=== PATIENT | male | born 1955 | race Caucasian/White ===

== ENCOUNTER 2017-07-23 12:15 | Outpatient (CLI) | payer MEDICARE, MEDICAID ==
--- OUTSIDE RECORDS SUMMARY | 2017-07-29 05:24 | XMS | Clinical Summary ---
:1955 Author Organization [facility] Address [address] [place] [address] Phone Care Team Providers Name Role Phone , Primary Care Provider Unavailable Allergies Not on File Current Medications Not on file Active Problems Not on file Social History Tobacco Use Types Packs/Day Years Used Date Never Assessed Sex Assigned at Date Recorded Not on file Last Filed Vital Signs Not on file Plan of Treatment Not on file Results Not on filefrom Last 3 Months
== END 2017-07-23 12:16 | disposition home or self-care (01) ==
LOC: LABBT 12:15
PROVIDERS: ATTEND Internal Medicine
DX: R91.8 Other nonspecific abnormal finding of lung field (principal)

== ENCOUNTER 2017-07-25 06:46 | Day surgery (SDC) | payer MEDICARE, MEDICAID ==
[2017-07-23 12:43] VITALS: BMI 46.3
[2017-07-25] MEDS ORDERED: Lidocaine 4% PF 5 ML AMP NEB SCH (07:45)
[2017-07-25] MEDS ORDERED: Sodium Chloride 0.9% 1,000 ML IV SCH (07:45)
[2017-07-25] MEDS ORDERED: Lidocaine 1% (PF) 30 ML VIAL ONE (08:17)
[2017-07-25] MEDS ORDERED: Midazolam HCl 2 mg/2 ml Vial ONE (09:01)
[2017-07-25] MEDS ORDERED: Fentanyl 100 MCG/2 ML VIAL ONE (09:01)
[2017-07-25] MEDS ORDERED: Lidocaine 1% PF 5 ML VIAL ONE (09:31)
[2017-07-25] MEDS ORDERED: Succinylcholine Chloride 20 MG/ML 10 ml SYRINGE FS ONE (09:31)
[2017-07-25] MEDS ORDERED: Propofol 200 MG/20 ML VIAL ONE (09:31)
--- NOTE | 2017-07-25 15:13 | OP ---
DATE OF PROCEDURE: 07/25/2017 SERVICE: Pulmonary Medicine. PROCEDURES PERFORMED: Fiberoptic bronchoscopy with: 1. Visual airway inspection. 2. Endobronchial biopsy from the superior segment of the right lower lobe. 3. Bronchial washing from the right lower lobe. PREOPERATIVE DIAGNOSES: Pulmonary mass. POSTPROCEDURE DIAGNOSIS: Pulmonary mass. PROCEDURE PER ASSESSMENT NURSE: Cristopher Cain M.D. MEDICATIONS: 1. Epinephrine 2 mL dilution. 2. For list of medicines, please refer to anesthesia's note. PREANESTHESIA ASSESSMENT: H\T\P had been performed. The patient's medications and allergies were r eviewed. Informed consent was obtained after discussing risks, benefits, and rationale for performi ng the procedure as well as alternative options. DESCRIPTION OF PROCEDURE: A timeout was performed, identifying the correct procedure and patient wi th name and date of . After induction of anesthesia, a diagnostic fiberoptic bronchoscope was introduced through the endotracheal tube. It was advanced into the trachea, where tracheobronchial tree inspection was carried out. There was clear identification of the right upper lobe, right midd le lobe, right lower lobe, left upper lobe, lingula, and left lower lobe. Anatomy was normal to the segmental level. However, there was some mass sitting inside of the superior segment of the right lower lobe, which obstructed any passage of the instrument. A bronchial wash was obtained from the right lower lobe. I preemptively gave a small aliquot of diluted epinephrine. Several endobronchial biopsies were obtained from the lesion under direct observation. Hemostasis was verified and the b ronchoscope was subsequently removed from the patient. FINDINGS: 1. Endobronchial mass of the superior segment of the right lower lobe obstructed, all instruments f rom passing distal. 2. Secretions were minimal. 3. No other endobronchial disease was identified. SPECIMENS: 1. Endobronchial biopsies. 2. Bronchial washing for pathology. COMPLICATIONS: None. ESTIMATED BLOOD LOSS: 2 mL. FLUOROSCOPY TIME: None. COMPLICATIONS: None. DISPOSITION: The patient will be discharged to home once he meets criteria.
--- OUTSIDE RECORDS SUMMARY | 2017-07-29 23:31 | XMS | Clinical Summary ---
:1955 Author Organization [facility] Address [address] [place] [address] Phone Care Team Providers Name Role Phone [...]
== END 2017-07-25 11:30 | disposition home or self-care (01) ==
LOC: SDC 06:46
PROVIDERS: ATTEND Internal Medicine
PROC: 0BB68ZZ Excision of Right Lower Lobe Bronchus, Via Natural or Artificial Opening Endoscopic (ICD-10-PCS; principal; 2017-07-25)
DX: C34.31 Malignant neoplasm of lower lobe, right bronchus or lung (principal); I25.10 Atherosclerotic heart disease of native coronary artery without angina pectoris; J44.9 Chronic obstructive pulmonary disease, unspecified; I11.0 Hypertensive heart disease with heart failure; I50.20 Unspecified systolic (congestive) heart failure; G47.33 Obstructive sleep apnea (adult) (pediatric); E78.5 Hyperlipidemia, unspecified; M19.90 Unspecified osteoarthritis, unspecified site; F17.210 Nicotine dependence, cigarettes, uncomplicated; Z79.899 Other long term (current) drug therapy; Z90.49 Acquired absence of other specified parts of digestive tract; Z98.52 Vasectomy status; Z98.890 Other specified postprocedural states
CPT/HCPCS: 88112; 88305; 88313; 88341; 88342; J2001; J2250; J2704; J3010; J7620

== ENCOUNTER 2017-08-15 09:00 | Outpatient (CLI) | payer MEDICARE, MEDICAID ==
--- NOTE | 2017-08-23 10:10 | PFT ---
PATIENT HISTORY: HEIGHT: 65 IN WEIGHT: 167 LBS SMOKER: YES HOW LON YEARS PACKS PER DAY: 2 PACKS PRODUCTIVE COUGH: NO LUNG DISEASE: COPD PHYSICIAN INTERPRETATION FINAL REPORT: FEV1 is 1.34 liters after bronchodilators. This improves to 1.7 liters best for follow capacity is 2.7 liters after bronchodilators. Mid flow are severely reduced. Diffusion is reduced, but corrects partially for lung volumes. IMPRESSION: Overall, this study is suggestive of a severe obstructive defect that improves with bronchodilators. Lung volumes were not done. For some reason spirometry and diffusion only were ordered. Spread Cutter: VARUN.[email or web address] Slabber: MANDI HAN
== END 2017-08-15 09:01 | disposition home or self-care (01) ==
LOC: CP 09:00
PROVIDERS: ATTEND Internal Medicine
DX: C34.90 Malignant neoplasm of unspecified part of unspecified bronchus or lung (principal); J44.9 Chronic obstructive pulmonary disease, unspecified
CPT/HCPCS: 94060; 94729

== ENCOUNTER 2017-08-18 11:52 | Outpatient (CLI) | payer MEDICARE, MEDICAID ==
--- NOTE | 2017-08-18 16:46 | MRI ---
BRAIN MRI WITH AND WITHOUT CONTRAST: Date: 08-18-17 Comparison: None. History: Lung cancer. Assess for intracranial metastatic disease. Technique: Multiplanar, multisequence MR imaging of the brain is obtained with and without contrast. FINDINGS: The diffusion weighted imaging demonstrates no evidence for acute infarction. The axial gradient echo imaging demonstrates no evidence for intracranial hemorrhage. There are a few scattered foci of increased T2 and FLAIR signal identified within the periventricula r and deep white matter, as well as within the region of the belly of the bessie. These findings sugge st small vessel disease. Arterial flow voids at the axial level of the skull base appear grossly unremarkable on the T2 weigh sejal imaging. The imaged paranasal sinuses and mastoid air cells demonstrate grossly unremarkable T2 appearance. Post contrast imaging demonstrates no abnormal enhancement within the brain parenchyma. Incidental noted is made of a posterior right frontal developmental venous anomaly. IMPRESSION: No MR evidence of intraaxial metastatic disease. POS: [facility]
== END 2017-08-18 11:53 | disposition home or self-care (01) ==
LOC: MRI 11:52
PROVIDERS: ATTEND Internal Medicine Hematology & Oncology
DX: C34.31 Malignant neoplasm of lower lobe, right bronchus or lung (principal); R51 Headache
CPT/HCPCS: 70553

== ENCOUNTER 2017-09-03 08:55 | Outpatient (CLI) | payer MEDICARE, MEDICAID ==
--- NOTE | 2017-09-03 09:53 | CT ---
CT CHEST WITH CONTRAST: Technique: Multiple axial tomograms were obtained through the chest with IV enhancement. History: Lung cancer. Recently diagnosed with lung cancer one month ago. History of COPD. Comparison: None. FINDINGS: There is a right infrahilar mass which measures approximately 4 cm diameter in the coronal plane. Thi s mass encompasses the right lower lobe bronchus. There is some streaky atelectasis extending into th e posterior right lower lobe. No effusion. Small calcified right hilar lymph nodes. No mediastinal adenopathy. There is questionable mural thick ening of the mid and lower esophagus. Images through the upper abdomen unremarkable. IMPRESSION: Right infrahilar mass measuring 4 cm diameter consistent with neoplasm as described above. There is s ome streaky parenchymal change radiating posteriorly from this mass into the right lower lobe suggest ing streaky atelectasis although a component of inflammatory infiltrate cannot be excluded. POS: [facility]
== END 2017-09-03 08:56 | disposition home or self-care (01) ==
LOC: CT 08:55
PROVIDERS: ATTEND Internal Medicine Medical Oncology
DX: C34.31 Malignant neoplasm of lower lobe, right bronchus or lung (principal); R91.8 Other nonspecific abnormal finding of lung field
CPT/HCPCS: 71260

== ENCOUNTER 2019-07-13 02:12 | Inpatient (IN) | payer MEDICARE, MEDICAID ==
[2019-07-13] MEDS ORDERED: HYDROmorphone 0.5 MG/0.5 ML SYRINGE ONE (02:27)
[2019-07-13 02:37] LABS: Hemoglobin 11.5 g/dL (14.0-18.0); Red Blood Cell (RBC) Count 5.24 mill/uL (4.70-6.10); White Blood Cell (WBC) Count 9.9 thou/uL (4.8-10.8)
[2019-07-13] MEDS ORDERED: Azithromycin 500 MG VIAL ONE (02:37)
[2019-07-13] MEDS ORDERED: Cefepime 2 GM VIAL ONE (02:37)
[2019-07-13 02:45] LABS: Actual Bicarbonate (HCO3a) 29.6 mEq/L (22-28); Analyzer IN Cardio ER; Base Excess (BEa) 5.9 mEq/L (-2.0 to +3.0); CO2 Tension 39.6 mmHg (35.0-45.0); Calcium, Ionized 1.82 mmol/L (1.12-1.30); Carboxyhemoglobin (COHb) 0.4 gm% (0.0-3.0); Hemoglobin (Hb) 11.8 g/dL (14.0-18.0); O2 Tension (PaO2) 99.2 mmHg (> 80.0); Potassium - ABG Lab 2.74 mmol/L (3.70-5.30); pH, Arterial 7.49 (7.35-7.45)
[2019-07-13 02:46] LABS: Bacteria/HPF None Seen HPF (None Seen); Bilirubin 1+ (Negative); Blood, Urine 1+ (Negative); Clarity Turbid (Clear); Glucose, Urine (Dipstick) Normal (Negative); Leukocyte 25 Leu/uL (Negative); Mucous/LPF 4+ LPF (<2+); Nitrite Negative (Negative); Protein, Urine (Dipstick) 100 mg/dL (Neg-Trace)
[2019-07-13 02:51] LABS: ALT (SGPT) 14 U/L (8-55); AST (SGOT) 21 U/L (5-34); Albumin 2.9 g/dL (3.4-4.8); Alkaline Phosphatase 327 U/L (40-110); Anion Gap 19 mmol/L (10-20); BUN (Urea Nitrogen) 16 mg/dL (8.4-25.7); Bilirubin, Total 0.8 mg/dL (0.2-1.2); Calc. Creatinine Clearance 0 mL/min (70-130); Carbon Dioxide 31 mmol/L (23-31); Chloride 89 mmol/L (98-107); Estimated GFR-MDRD 70; Globulin 4.4 g/dL (2.4-3.5); Glucose 161 mg/dL (80-115); Potassium 3.1 mmol/L (3.5-5.1); Protein, Total 7.3 g/dL (5.8-8.1); Sodium 136 mmol/L (136-145)
[2019-07-13] MEDS ORDERED: Propofol 1,000 MG/100 ML VIAL IV ONE (02:51)
[2019-07-13 02:53] LABS: #Basophils 0.1 thou/uL (0.0-0.2); #Lymphocytes 0.5 thou/uL (1.20-3.40); #Monocytes 0.8 thou/uL (0.11-0.59); #Neutrophils 8.5 thou/uL (1.40-6.50); %Basophils 1.5 % (0.0-1.0); %Lymphocytes 4.9 % (21.0-51.0); %Monocytes 8.4 % (0.0-10.0); %Neutrophils 85.2 % (42.0-75.0); Hypochromia SLIGHT = 6-15 cells (100X) (0-5/hpf); MDiff Complete? YES; Mean Corpuscular HGB CONC 29.7 g/dL (32.0-36.0); Mean Corpuscular Hemoglobin 21.9 pg (27.0-31.0); Mean Corpuscular Volume 73.8 fL (78.0-98.0); Microcytosis SLIGHT = 6-15 cells (100X) (0-5/hpf); Platelet Count 312 thou/uL (130-400); Platelet Morphology Comment Appears Adequate; RBC Distribution Width 15.9 % (11.5-14.5)
[2019-07-13 02:53] LABS: Puncture Site LRA
[2019-07-13 03:06] LABS: Calcium 15.6 mg/dL (7.8-10.44)
[2019-07-13] MEDS ORDERED: Dexamethasone 10 MG/ML VIAL ONE (03:34)
[2019-07-13] MEDS ORDERED: Potassium Chloride 40 MEQ in Sodium Chloride 0.9% 250 ML 250 ML IVPB SCH (04:00)
[2019-07-13] MEDS ORDERED: Acetaminophen 650 MG Suppository PR PRN (04:10)
[2019-07-13] MEDS ORDERED: Ondansetron ODT 4 MG TAB PO PRN (04:10)
[2019-07-13] MEDS ORDERED: Ondansetron PF 4 MG/2 ML Vial IVP PRN (04:10)
[2019-07-13] MEDS ORDERED: Ventilator Sedation Protocol 1 EACH FS SCH (04:13)
[2019-07-13] MEDS ORDERED: Calcitonin,Salmon,Synthetic 200 UNITS/ML SC SCH (04:15)
[2019-07-13] MEDS ORDERED: fentaNYL Citrate/PF 2,000 MCG in Sodium Chloride 0.9% 60 ML IV SCH (04:32)
[2019-07-13] MEDS ORDERED: DISCONTINUE PREVIOUS NARCOTIC PAIN MEDICATIONS AND BENZODIAZEPINES FS SCH (04:32)
[2019-07-13] MEDS ORDERED: Morphine 2 MG/ML SYRINGE SLOW IVP PRN (04:32)
[2019-07-13] MEDS ORDERED: Lorazepam 2 MG/ML VIAL SLOW IVP PRN (04:32)
[2019-07-13] MEDS ORDERED: Fentanyl BOLUS 250 ML IVPB PRN (04:32)
[2019-07-13] MEDS ORDERED: Propofol BOLUS 1,000 MG/100 ML VIAL IV PRN (04:32)
[2019-07-13 04:51] VITALS: BMI 37.2
[2019-07-13] MEDS: Sodium Chloride 0.9% 1,000 ML IV SCH ×5 (05:14→23:52)
--- NOTE | 2019-07-13 06:02 | HP ---
PRIMARY CARE DOCTOR: None reported. CODE STATUS: Full code. TIME OF EVALUATION: 4:20 a.m. CHIEF COMPLAINT: Acute change in mental status. HISTORY OF PRESENT ILLNESS: This is a 64-year-old male patient with past medical history of lung cancer, came to the hospital after having been found with altered mental status, saturation in the 60s and 70s. The history of what happened is unknown as per their transportation report. The patient will need to be intubated due to acute respiratory failure and acute encephalopathy. He was found to have a very high calcium level, most likely this is the reason for the acute encephalopathy and also concomitant dehydration. The patient is going to ICU and will be monitored there. We will start the patient on aggressive IV hydration and calcitonin. We will repeat the calcium for efficacy of medication to decide on further doses. REVIEW OF SYSTEMS: Unable to obtain due to the patient is encephalopathic and intubated. PAST MEDICAL HISTORY: Positive for hypertension and COPD. PAST SURGICAL HISTORY: Hernia patch, penis implant, and cholecystectomy. PSYCHIATRIC HISTORY: Depression. SOCIAL HISTORY: The patient drinks socially every week. No drug use. Smokes one pack per day. KNOWN ALLERGIES: No known drug allergies. FAMILY HISTORY: Reviewed, noncontributory for current presentation. REPORTED MEDICATIONS: Unable to obtain. PHYSICAL EXAMINATION: VITAL SIGNS: On presentation, blood pressure 133/91, heart rate 114, respiratory rate was 18, and oxygen saturation was 100% on the vent. GENERAL APPEARANCE: The patient is sedated, intubated, poor hygiene. HEENT: Eyes, normal conjunctivae. Moist oral mucosa. Anicteric. No JVD. RESPIRATORY: Bilateral air entry. Scattered rales. No wheezes. Symmetric expansion. CARDIOVASCULAR: Normal rate. Regular rhythm. No murmurs. No gallop. No edema. ABDOMEN: Soft. Normal bowel sounds. MUSCULOSKELETAL: Baseline range of motion and strength. SKIN: Warm and intact. No pallor. No rash. No redness. The patient has very poor hygiene. Capillary refill seems to intact. NEURO: No evidence of any new focal weakness. The patient is sedated, intubated, unable to fully explore. PSYCH: Unable to explore. IMAGING STUDIES: EKG was done. The patient has sinus tachycardia at the rate of 119 with infiltrate and PVCs. Radiology, chest CT with contrast shows no evidence of pulmonary embolism. Right healing lower lobe posterior mediastinal mass. LABORATORY DATA: Reviewed. The patient has a white count of 9.9, hemoglobin 11.5, MCV 73.8, platelet count 312, neutrophils 35.2. Blood gas; pH 7.49 with pCO2 of 39.6, oxygen saturation is 99.2. Calcium ionized was 1.82. Chemistry; sodium 136, potassium 3.1, chloride 89, anion gap 31, BUN 19, creatinine 1.06, GFR 70, glucose 169 with lactic acid 2.6, calcium was 15.6, total bilirubin 0.8, alkaline phosphatase was 327. CK was 19. Troponin 0.013. Beta-natriuretic peptide 116.4, albumin 2.9, TSH 1.0. Urine was done. White count was 11 to 20. ASSESSMENT AND PLAN: The patient will be placed in the hospital with following medical problems. 1. Severe hypercalcemia. The patient has been started on aggressive hydration; it might be the reason for the acute encephalopathy, started on calcitonin. ____ pamidronate is not available, we can do zoledronic acid. This is likely secondary to underlying lung cancer. 2. Urinary tract infection. The patient has a positive urine. The patient has been started on antibiotics, follow cultures, we will adjust treatment as per sensitivity. 3. Lactic acidosis, likely secondary to sepsis. We will treat underlying condition. 4. Respiratory alkalosis, pH 7.49 and pCO2 of 39.6. 5. Chronic microcytic anemia. This is likely secondary to underlying malignancy. We will monitor. No need for any acute intervention at this point. 6. Hypokalemia. Potassium 3.1. We will replace electrolytes as needed. 7. Acute encephalopathy secondary to hypercalcemia/sepsis. We will treat underlying condition. 8. Acute hypoxic respiratory failure as reported by EMS. The patient has saturation in the 70s and 80s, needed to be intubated. 9. Lung cancer. This seems to be a chronic problem for this patient. This can be reassessed and treated as an outpatient with the patient's oncologist. 10. Deep venous thrombosis prophylaxis. critical care time 40 min spent in bedside assessment, medication reconciliation plan, discussion with er physician, stabilization of the patient Job ID: [id number] [facility]
[2019-07-13 06:49] LABS: Actual Bicarbonate (HCO3a) 33.2 mEq/L (22-28); Base Excess (BEa) 9.6 mEq/L (-2.0 to +3.0); CO2 Tension 40.9 mmHg (35.0-45.0); Calcium, Ionized 1.82 mmol/L (1.12-1.30); Carboxyhemoglobin (COHb) 0.8 gm% (0.0-3.0); Hemoglobin (Hb) 11.1 g/dL (14.0-18.0); O2 Tension (PaO2) 75.4 mmHg (> 80.0); Potassium - ABG Lab 3.36 mmol/L (3.70-5.30); pH, Arterial 7.53 (7.35-7.45)
[2019-07-13 06:50] LABS: ALV-art Gradient 158.675 (0-20); Puncture Site RRA
--- NOTE | 2019-07-13 08:02 | CT ---
PRELIMINARY REPORT/[facility]/EMERGENCY AFTER HOURS PROCEDURE: PROCEDURE INFORMATION: Exam: CT Angiography Chest With Contrast Exam date and time: 07/13/2019 3:18 AM Clinical history: 64 years old, male; Dyspnea and shortness of breath; Patient HX: 64 yo m presents t o ED via EMS with C/O respiratory distress. EMS reports PT was found at home with AMS. Pt's o2 sats b vi dropping into the low 80s-70s, PT was intubated by EMS in route to ED. EMS reports HX of copd. TECHNIQUE: Imaging protocol: Computed tomographic angiography of the chest with intravenous contrast. 3D rendering: MIP reconstructed images were created and reviewed. COMPARISON: No relevant prior studies available. FINDINGS: Tubes, catheters and devices: Endotracheal tube is present. A nasogastric tube lies with its tip in t he stomach. Pulmonary arteries: There is no evidence of peripheral filling defects within the pulmonary arterial circulation to suggest pulmonary embolism. Aorta: Unremarkable. No aortic aneurysm. No aortic dissection. Lungs: There is atelectasis along the right major fissure. Mild centrilobular emphysematous changes a re present. Pleural space: Unremarkable. No pneumothorax. No pleural effusion. Heart: Unremarkable. No cardiomegaly. No pericardial effusion. Mediastinum: there is a 9 x 10 x 11 cm mass in the right lower lobe/ibrahima and involving the posterior mediastinum suspicious for neoplasm. Lower lobe pulmonary arteries are seen coursing through the mass , some narrowed. Lymph nodes: Unremarkable. No enlarged lymph nodes. Bones/joints: Numerous healed right rib fractures are present. Soft tissues: Unremarkable. IMPRESSION: 1. There is no CT evidence of acute pulmonary embolism. 2. Right hilar/lower lobe/posterior mediastinal mass as above. Thank you for allowing us to participate in the care of your patient. Dictated and Authenticated by: Jose Rafael Liz MD 07/13/2019 3:39 AM Central Time ([place] & [place]) FINAL REPORT CT ANGIOGRAM OF CHEST: Date: 07/13/19 COMPARISON: 06/16/18. HISTORY: Respiratory distress. TECHNIQUE: CT angiogram of the chest is performed in the axial plane. Three-dimensional reformatted images are s ubmitted for interpretation. FINDINGS: Endotracheal and nasogastric tube are identified. There is no evidence of pulmonary arterial embolism to the level of the segmental arteries. Visualized upper solid organs are grossly unremarkable. Gall bladder is surgically absent. There is a large subcarinal mass with extension into the right infrahil ar region. There is consolidation and opacification of the medial right lower lobe. No pleural effusi on or pneumothorax. Multiple old right rib fractures are noted. IMPRESSION: This report is in agreement with the preliminary report by [facility]. 1. No evidence of pulmonary artery embolism to the level of the segmental arteries. 2. There is a right subcarinal/right infrahilar and right lower lobe mass as described in the prelim inary report by [facility]. Neoplasm is favored until proven otherwise. Lesion is amenable to biopsy via br onchoscopy. POS: [facility]
--- NOTE | 2019-07-13 08:05 | CT ---
PRELIMINARY REPORT/[facility]/EMERGENCY AFTER HOURS PROCEDURE: PROCEDURE INFORMATION: Exam: CT Head Without Contrast Exam date and time: 07/13/2019 3:12 AM Clinical history: 64 years old, male; Altered mental status/memory loss; Confusion or disorientation; Patient HX: 64 yo m presents to ED via EMS with C/O respiratory distress. EMS reports PT was found a t home with AMS. Pt's o2 sats began dropping into the low 80s-70s, PT was intubated by EMS in route to ED. EMS reports HX of copd. TECHNIQUE: Imaging protocol: Computed tomography of the head without contrast. COMPARISON: No relevant prior studies available. FINDINGS: Brain: Normal. No hemorrhage. Unremarkable white matter. No mass effect. Pineal gland calcification is noted. Ventricles: Normal. No ventriculomegaly. Bones/joints: Unremarkable. No acute fracture. Sinuses: Visualized sinuses are unremarkable. No fluid levels. Mastoid air cells: Visualized mastoid air cells are well aerated. Soft tissues: Unremarkable. IMPRESSION: No acute intracranial hemorrhage. Thank you for allowing us to participate in the care of your patient. Dictated and Authenticated by: Jose Rafael Liz MD 07/13/2019 3:28 AM Central Time ([place] & [place]) FINAL REPORT HEAD CT WITHOUT CONTRAST: Date: 07/13/19 HISTORY: Respiratory distress. Altered mental status. FINDINGS: No parenchymal hemorrhage. No extra-axial hematoma. No midline shift. Basilar cisterns are patent. Br ain volume is age-appropriate. Cortical scott-white matter differentiation preserved. No hydrocephalus . Mild mucosal thickening of the paranasal sinuses. Adequate mastoid air cell aeration. Intact calvar ium. IMPRESSION: This report is in agreement with the preliminary report by [facility]. No acute intracranial process. POS: [facility]
[2019-07-13] MEDS: Famotidine/PF 20 mg/2ml Vial SLOW IVP SCH ×2 (08:06→20:33)
--- NOTE | 2019-07-13 08:27 | PDOC.HOSPP ---
- Subjective Encounter Date: 07/13/19 Encounter Time: 08:25 Subjective: intubated, sedated - Objective Vital Signs & Weight: Vital Signs (12 hours) Temp Pulse BP Pulse Ox 07/13/19 07:53 92 111/71 07/13/19 06:18 97 07/13/19 05:00 99.0 F 07/13/19 04:27 91 119/81 Weight Weight 259 lb 4.218 oz Most Recent Monitor Data Heart Rate from ECG 91 NIBP 111/71 NIBP BP-Mean 84 Respiration from ECG 16 SpO2 97 I&O: 07/12/19 07/13/19 07/14/19 06:59 06:59 06:59 Intake Total 298 Output Total 175 Balance 123 Result Diagrams: 07/13/19 02:27 07/13/19 02:27 Radiology Reviewed by me: Yes (cxr- ET above zen, no infiltrate) Hospitalist ROS - Medication Medications: Active Medications Generic Name Dose Route Start Last Admin Trade Name Freq PRN Reason Stop Dose Admin Famotidine 20 mg 07/13/19 09:00 07/13/19 08:06 Pepcid SLOW IVP 20 mg BID CHIDI Administration Heparin Sodium (Porcine) 5,000 units 07/13/19 09:00 07/13/19 08:06 Heparin SC 5,000 units TID CHIDI Administration Sodium Chloride 1,000 mls @ 200 mls/hr 07/13/19 04:00 07/13/19 05:14 Normal Saline 0.9% IV 1,000 mls .Q5H CHIDI Administration Sodium Chloride 10 ml 07/13/19 09:00 07/13/19 08:13 Flush - Normal Saline IVF 10 ml Q12HR CHIDI Administration - Exam Neck: no JVD Heart: RRR, no murmur Respiratory: CTAB Gastrointestinal: soft, normal bowel sounds Extremities: no edema Hosp A/P (1) Encephalopathy acute Code(s): G93.40 - ENCEPHALOPATHY, UNSPECIFIED Status: Acute (2) Hypercalcemia of malignancy Code(s): E83.52 - HYPERCALCEMIA Status: Acute (3) Acute respiratory failure with hypoxemia Code(s): J96.01 - ACUTE RESPIRATORY FAILURE WITH HYPOXIA Status: Acute (4) Lung cancer, lower lobe Code(s): C34.30 - MALIGNANT NEOPLASM OF LOWER LOBE, UNSP BRONCHUS OR LUNG Status: Chronic Qualifiers: Laterality: unspecified laterality Qualified Code(s): C34.30 - Malignant neoplasm of lower lobe, unspecified bronchus or lung (5) Hypokalemia Code(s): E87.6 - HYPOKALEMIA Status: Acute - Plan discussed with scooper post Tx high calcium, rpt level iv salime replace K+ discuss with family oncology consult
[2019-07-13] MEDS ORDERED: Enoxaparin Sodium 40 MG/0.4 ML SYRINGE SC SCH (09:00)
[2019-07-13] MEDS ORDERED: Heparin 5,000 UNITS/ML VIAL SC SCH (09:00)
[2019-07-13] MEDS ORDERED: ISOVUE-370 76%-LOCM 1 ML ONE (09:58)
--- NOTE | 2019-07-13 10:03 | RAD ---
CHEST 1 VIEW PORTABLE: Date: 07/13/19 HISTORY: Respiratory arrest, post intubation. COMPARISON: 07/15/18. FINDINGS: NG tube and endotracheal tubes are in satisfactory location. Surgical clips overlie the central media stinal region. Right-sided healed rib fractures and some pleural thickening. Abnormal opacity in the right infrahilar region, concerning for the possibility of underlying pneumonia, atelectasis, and/or mass. IMPRESSION: Abnormal right infrahilar and lower lobe abnormal opacity. Increased markings bilaterally, stable. NG tube and endotracheal tubes in position. Healed right rib fractures with pleural thickening. POS: [facility]
--- NOTE | 2019-07-13 10:30 | CON ---
DATE OF CONSULTATION: HISTORY OF PRESENT ILLNESS: This is a 64-year-old gentleman, unable to get any history. Apparently, there are no family members here. We tried last night to contact from the ER. He has called EMS. His sats were in the 80s and 70s, was intubated by EMS en route. He is on the vent. Apparently, previous history is outlined in the previous medical chart includes osteoarthritis; lung cancer with COPD, non-small cell; hypertension; sleep apnea. PAST SURGICAL HISTORY: Including bronchoscopy, cholecystectomy, some kind of a hernia patch. HOME MEDICATIONS: This presumably include; 1. Ventolin inhaler. 2. Chantix. 3. CQ. 4. Spiriva. 5. Entresto. 6. Crestor. 7. Lasix. 8. Advair. 9. Aspirin. 10. Amlodipine. ALLERGIES: UNKNOWN. PREVIOUS SURGERIES INCLUDE CHOLECYSTECTOMY, HERNIA, PENILE IMPLANT SURGERY. REVIEW OF SYSTEMS: Otherwise unobtainable. PHYSICAL EXAMINATION: GENERAL: Intubated on the vent, unresponsive. VITAL SIGNS: Blood pressure 110/70, pulse 80, respirations 18, afebrile, sats 99%. CHEST: Decreased breath sounds. No wheezing. CARDIAC: Normal S1, S2. No gallops. ABDOMEN: Soft. No masses. LABORATORY DATA: PO2 of 75, pCO2 of 40, pH 7.53, rate of 16, 40%. His calcium level is 15. He was given, I am told, calcitonin last night. IMPRESSION: Respiratory failure, right lung mass, non-small cell, morbid obesity, sleep apnea. Started steroids, neb treatments. Continue antibiotics, supportive care. We will once again try and get hold of the family. Start nutrition in the next 24 to 48 hours. Continue DVT prophylaxis. This is an ICU 45-minute critical time. Job ID: [id number]
[2019-07-13] MEDS: methylPREDNISolone Sod Succ 40 MG VIAL IVP SCH ×3 (11:09→23:52)
[2019-07-13] MEDS ORDERED: Zoledronic Acid 4 MG in Sodium Chloride 0.9% 100 ML IVPB SCH (11:30)
[2019-07-13] MEDS: Cefepime 1 GM in Sodium Chloride 0.9% 100 ML IVPB SCH (15:50)
[2019-07-13] MEDS: Propofol 1,000 MG/100 ML VIAL IV PRN ×2 (15:50→22:40)
[2019-07-13] MEDS: Enoxaparin Sodium 40 MG/0.4 ML SYRINGE SC SCH (20:33)
--- NOTE | 2019-07-13 22:19 | CON ---
DATE OF CONSULTATION: REASON FOR CONSULT: Squamous cell carcinoma of the right lower lobe. HISTORY OF PRESENT ILLNESS: Mr. 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 He presented to the emergency room via EMS with altered mental status. He was intubated for respiratory failure due to saturations in the 60s and 70s on room air. His calcium was elevated on arrival at 15.6. He was started on IV hydration, given a dose of Zometa and admitted to the ICU. Mr. 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 He was referred to Dr. Dailey for radiation opinion. It was felt that he would be a candidate for resection. He was then referred to Dr. Huffman in [place]. Unfortunately, the patient apparently never followed up nor has he been seen in our clinic since August 2017. A CT scan done in the emergency room on this visit showed a mediastinal mass measuring 9 x 10 x 11 cm. There were no enlarged lymph nodes. No obvious metastasis to the bones. No liver lesions. The patient remains intubated in the ICU. There is no family at bedside. History was obtained from review of prior medical records. PAST MEDICAL HISTORY: 1. Stage Ib squamous cell carcinoma of the right lower lobe. 2. Hypertension. 3. FL. 4. CAD. 5. Gastroesophageal reflux disease. 6. Mixed anxiety disorder. 7. Hyperlipidemia. 8. COPD. PAST SURGICAL HISTORY: 1. Cholecystectomy. 2. Penis implant. 3. Lung biopsy. ALLERGIES: NO KNOWN DRUG ALLERGIES. HOME MEDICATIONS: Unknown. FAMILY HISTORY: Brother had colon cancer. SOCIAL HISTORY: . Has 2 children. Lives alone. Current everyday smoker in 2017. No alcohol or illicit drug use. REVIEW OF SYSTEMS: Unable to obtain secondary to respiratory failure. PHYSICAL EXAMINATION: VITAL SIGNS: Temperature 98.5, pulse is 110, respiratory rate is 14, blood pressure is 141/88. He is 100% on FiO2 of 40. GENERAL: Obese male, in no acute distress. HEENT: Normocephalic, atraumatic. NECK: Supple. CV: Regular rate and rhythm. He is tachycardic. LUNGS: Diminished anteriorly as ET tube in place and is on the vent. ABDOMEN: Obese, nontender. Bowel sounds are positive. EXTREMITIES: No clubbing or cyanosis. SKIN: No rash. HEMATOLOGIC: No petechiae or purpura. NEUROLOGIC: The patient is sedated with Diprivan. PERTINENT LABS AND X-RAYS: Current WBCs are 9.9, hemoglobin 11.5, hematocrit 38.7, platelet count is 312,000, 85% neutrophils, 5% lymphocytes. Sodium 136, potassium 3.1, chloride 89, CO2 is 31, BUN is 16, creatinine 1.06. Lactic acid 2.6. Calcium 14.7, bilirubin 0.8, AST is 21, ALT is 14, alkaline phosphatase is 327. BNP is 116. Serum total protein 7.3, albumin 2.9, globulin 4.4. Urine showed no bacteria. ASSESSMENT: 1. 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 2. Respiratory failure. 3. Hypercalcemia. 4. Altered mental status, likely due to hypercalcemia. DISCUSSION: The patient remains on the ventilator. He is on antibiotics and IV fluids. His calcium has been treated with calcitonin and Zometa and should improve over the next several days. Zometa can be repeated after 7 days. It appears that he has not received any treatment for his lung cancer over the past 2 years and now is at least a stage III. His brain CT is negative for metastatic lesions, but has not been fully staged with abdomen and pelvic CT scan. It can be done at a later date once the patient is more stable. No acute recommendations at this time. We will follow along with the patient. Job ID: [id number] [id number]
[2019-07-14] MEDS: Cefepime 1 GM in Sodium Chloride 0.9% 100 ML IVPB SCH ×2 (02:41→17:15)
[2019-07-14] MEDS: Propofol 1,000 MG/100 ML VIAL IV PRN (05:17)
[2019-07-14] MEDS: Azithromycin 500 MG in Sodium Chloride 0.9% 250 ML 250 ML IVPB SCH (05:17)
[2019-07-14] MEDS: methylPREDNISolone Sod Succ 40 MG VIAL IVP SCH ×2 (05:17→13:09)
[2019-07-14] MEDS: Sodium Chloride 0.9% 1,000 ML IV SCH ×2 (05:21→11:14)
[2019-07-14 05:41] LABS: #Basophils 0.2 thou/uL (0.0-0.2); #Eosinphils 0.1 thou/uL (0.0-0.7); #Lymphocytes 0.4 thou/uL (1.20-3.40); #Monocytes 0.8 thou/uL (0.11-0.59); #Neutrophils 16.3 thou/uL (1.40-6.50); %Basophils 0.9 % (0.0-1.0); %Eosinophils 0.5 % (0.0-10.0); %Lymphocytes 2.1 % (21.0-51.0); %Monocytes 4.2 % (0.0-10.0); %Neutrophils 92.3 % (42.0-75.0); Hemoglobin 9.9 g/dL (14.0-18.0); Mean Corpuscular HGB CONC 31.6 g/dL (32.0-36.0); Mean Corpuscular Hemoglobin 22.4 pg (27.0-31.0); Mean Corpuscular Volume 70.9 fL (78.0-98.0); Mean Platelet Volume 8.3 fL (7.4-10.4); Platelet Count 296 thou/uL (130-400); RBC Distribution Width 16.3 % (11.5-14.5); Red Blood Cell (RBC) Count 4.43 mill/uL (4.70-6.10); White Blood Cell (WBC) Count 17.6 thou/uL (4.8-10.8)
[2019-07-14 05:52] LABS: Anion Gap 12 mmol/L (10-20); BUN (Urea Nitrogen) 13 mg/dL (8.4-25.7); Calc. Creatinine Clearance 153 mL/min (70-130); Carbon Dioxide 30 mmol/L (23-31); Chloride 102 mmol/L (98-107); Estimated GFR-MDRD Greater than 90; Glucose 134 mg/dL (80-115); Sodium 141 mmol/L (136-145)
[2019-07-14 05:54] LABS: Calcium 12.6 mg/dL (7.8-10.44); Potassium 2.8 mmol/L (3.5-5.1)
[2019-07-14] MEDS ORDERED: Potassium Chloride 20 MEQ TAB PO SCH (06:15)
[2019-07-14 06:34] LABS: Actual Bicarbonate (HCO3a) 35.8 mEq/L (22-28); Base Excess (BEa) 11.4 mEq/L (-2.0 to +3.0); CO2 Tension 46.5 mmHg (35.0-45.0); Calcium, Ionized 1.65 mmol/L (1.12-1.30); Carboxyhemoglobin (COHb) 0.8 gm% (0.0-3.0); Hemoglobin (Hb) 10.7 g/dL (14.0-18.0); O2 Tension (PaO2) 66.3 mmHg (> 80.0)
[2019-07-14 06:38] LABS: ALV-art Gradient 160.775 (0-20); Puncture Site RRA
[2019-07-14] MEDS: Famotidine/PF 20 mg/2ml Vial SLOW IVP SCH (07:34)
--- NOTE | 2019-07-14 08:04 | PDOC.HOSPP ---
- Subjective Encounter Date: 07/14/19 Encounter Time: 08:01 Subjective: intubated - Objective Vital Signs & Weight: Vital Signs (12 hours) Temp Pulse Resp BP Pulse Ox 07/14/19 07:02 104 H 109/77 07/14/19 06:00 15 07/14/19 04:00 98.4 F 16 07/14/19 02:10 112 H 125/83 07/14/19 02:00 15 07/14/19 00:46 108 H 95 07/14/19 00:00 98.4 F 15 07/13/19 22:47 109 H 135/86 07/13/19 22:00 15 Weight Admit Weight 259 lb Weight 259 lb 4.218 oz Most Recent Monitor Data Heart Rate from ECG 102 NIBP 116/79 NIBP BP-Mean 91 Respiration from ECG 18 SpO2 94 I&O: 07/13/19 07/14/19 07/15/19 06:59 06:59 06:59 Intake Total 298 3867 Output Total 175 1100 Balance 123 6117 Result Diagrams: 07/14/19 04:57 07/14/19 04:57 Hospitalist ROS - Medication Medications: Active Medications Generic Name Dose Route Start Last Admin Trade Name Freq PRN Reason Stop Dose Admin Albuterol/Ipratropium 3 ml 07/13/19 13:00 07/14/19 07:02 Duoneb NEB 3 ml [id number] CHIDI Administration Enoxaparin Sodium 40 mg 07/13/19 21:00 07/13/19 20:33 Lovenox SC 40 mg 2100 CHIDI Administration Famotidine 20 mg 07/13/19 09:00 07/14/19 07:34 Pepcid SLOW IVP 20 mg BID CHIDI Administration Sodium Chloride 1,000 mls @ 200 mls/hr 07/13/19 04:00 07/14/19 05:21 Normal Saline 0.9% IV 1,000 mls .Q5H CHIDI Administration Cefepime HCl 1 gm/ Sodium 100 mls @ 200 mls/hr 07/13/19 15:00 07/14/19 02:41 Chloride IVPB 100 mls 0300,1500 CHIDI Administration Azithromycin 500 mg/ Sodium 250 mls @ 250 mls/hr 07/14/19 04:30 07/14/19 05: 17 Chloride IVPB 250 mls Q24HR CHIDI Administration Methylprednisolone Sodium Succinate 40 mg 07/13/19 12:00 07/14/19 05:17 Solu-Medrol IVP 40 mg Q6HR CHIDI Administration Propofol 1,000 mg 07/13/19 04:32 07/14/19 05:17 Diprivan IV 08/12/19 04:32 1,000 mg INF PRN Administration TO ACHIEVE GOAL RASS Protocol Sodium Chloride 10 ml 07/13/19 09:00 07/14/19 07:34 Flush - Normal Saline IVF 10 ml Q12HR CHIDI Administration - Exam Neck: no JVD Heart: RRR, no murmur Respiratory - other findings: coarse BS Gastrointestinal: soft, non-tender, normal bowel sounds Extremities: no edema Hosp A/P (1) Encephalopathy acute Code(s): G93.40 - ENCEPHALOPATHY, UNSPECIFIED Status: Acute (2) Hypercalcemia of malignancy Code(s): E83.52 - HYPERCALCEMIA Status: Acute (3) Acute respiratory failure with hypoxemia Code(s): J96.01 - ACUTE RESPIRATORY FAILURE WITH HYPOXIA Status: Acute (4) Lung cancer, lower lobe Code(s): C34.30 - MALIGNANT NEOPLASM OF LOWER LOBE, UNSP BRONCHUS OR LUNG Status: Chronic Qualifiers: Laterality: unspecified laterality Qualified Code(s): C34.30 - Malignant neoplasm of lower lobe, unspecified bronchus or lung (5) Hypokalemia Code(s): E87.6 - HYPOKALEMIA Status: Acute - 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
--- NOTE | 2019-07-14 08:07 | RAD ---
PORTABLE CHEST 1 VIEW: DATE: 07/14/2019. TIME: 4:45 a.m. HISTORY: Respiratory failure. FINDINGS/IMPRESSION: Comparison is made with the exam of the previous day. Endotracheal and nasogastric tubes remain in p lace. The heart size is stable. There are mild atelectatic changes at the right lung base. No pneu mothoraces are seen. Healed rib fractures are again noted. Opacity in the right infrahilar region i s again noted. POS: [facility]
[2019-07-14] MEDS ORDERED: FLU VACC TS2019-20(65YR UP)/PF 180 MCG/0.5 ML SYRINGE IM ONE (09:00)
[2019-07-14] MEDS ORDERED: Prevnar 13-Val Conj/PF 0.5 ML SYRINGE IM ONE (09:00)
--- NOTE | 2019-07-14 09:52 | PDOC.MOPN ---
Interval History: remains on vent with sedation. - Vital Signs Vital Signs: Vital Signs (12 hours) Temp Pulse Resp BP Pulse Ox 07/14/19 09:22 101 H 07/14/19 08:00 98.8 F 07/14/19 07:02 104 H 109/77 07/14/19 06:00 15 07/14/19 04:00 98.4 F 16 07/14/19 02:10 112 H 125/83 07/14/19 02:00 15 07/14/19 00:46 108 H 95 07/14/19 00:00 98.4 F 15 07/13/19 22:47 109 H 135/86 07/13/19 22:00 15 Weight Admit Weight 259 lb Weight 259 lb 4.218 oz Most Recent Monitor Data Heart Rate from ECG 109 NIBP 123/88 NIBP BP-Mean 99 Respiration from ECG 19 SpO2 93 - Physical Exam General: No acute distress HEENT: Atraumatic Lungs: Clear to auscultation Cardiovascular: Regular rate Abdomen: Normal bowel sounds Extremities: No clubbing Skin: No rashes Neurological: Other (sedated but follows commands per nurse) - Labs Result Diagrams: 07/14/19 04:57 07/14/19 04:57 Lab results: Laboratory Results - last 24 hr 07/14/19 06:27: Specimen Type ARTERIAL, Puncture Site RRA, Bicarbonate Actual 35.8 H, ABG pH 7.50 H, ABG pCO2 46.5 H, ABG pO2 66.3, ABG O2 Sat Calc/Tim 93.9 L, ABG O2 Content 14.0 L, ABG Base Excess 11.4 H, ABG Hematocrit 31.0 L, ABG Hemoglobin 10.7 L, ABG Oxyhemoglobin 92.9 L, ABG Carboxyhemoglobin 0.8, ABG Methemoglobin 0.30, ABG Deoxyhemoglobin 6.0 H, Tony Test POSITIVE, A-a O2 Gradient 160.775 H, Ionized Calcium 1.65 H, Mode of Support SIMV/PS, Mechanical Rate 10, Spontaneous Rate 5, Inspired O2 40, Tidal Volume 500, Spontaneous Tidal Vol 300, Pressure Support 10, PEEP or CPAP 5.0, Sodium 141, Potassium 2.60 L, Chloride 101 07/14/19 04:57: WBC 17.6 H, RBC 4.43 L, Hgb 9.9 L, Hct 31.4 L, MCV 70.9 L, MCH 22.4 L, MCHC 31.6 L, RDW 16.3 H, Plt Count 296, MPV 8.3, Neutrophils % 92.3 H, Lymphocytes % 2.1 L, Monocytes % 4.2, Eosinophils % 0.5, Basophils % 0.9, Neutrophils # 16.3 H, Lymphocytes # 0.4 L, Monocytes # 0.8 H, Eosinophils # 0.1 , Basophils # 0.2 07/14/19 04:57: Sodium 141, Potassium 2.8 L*, Chloride 102, Carbon Dioxide 30, Anion Gap 12, BUN 13, Creatinine 0.80, Estimated GFR (MDRD) Greater than 90, Glucose 134 H, Calcium 12.6 H* Status: lab reviewed by me A/P - Problem (1) Acute respiratory failure with hypoxemia Current Visit: Yes Code(s): J96.01 - ACUTE RESPIRATORY FAILURE WITH HYPOXIA Status: Acute (2) Hypercalcemia of malignancy Current Visit: Yes Code(s): E83.52 - HYPERCALCEMIA Status: Acute (3) Lung cancer, lower lobe Current Visit: Yes Code(s): C34.30 - MALIGNANT NEOPLASM OF LOWER LOBE, UNSP BRONCHUS OR LUNG Status: Chronic Qualifiers: Laterality: unspecified laterality Qualified Code(s): C34.30 - Malignant neoplasm of lower lobe, unspecified bronchus or lung - Plan Plan: 1. hypercalcemia improving, continue IV hydration 2. vent per Pulmonary 3. Will need further scanning to complete staging once off vent 4. PCT consult once extubated for goals of care
[2019-07-14] MEDS ORDERED: Potassium Chloride 40 MEQ in Sodium Chloride 0.9% 250 ML 250 ML IVPB SCH (12:45)
[2019-07-14] MEDS ORDERED: Hydrocortisone Sod Succ/PF 100 mg/2 ml Vial ONE (12:56)
[2019-07-14] MEDS: Sodium Chloride 0.45% 1,000 ML IV SCH (13:06)
--- NOTE | 2019-07-14 13:16 | PRG ---
DATE OF SERVICE: 07/14/2019 SERVICE: Pulmonary Medicine. INTERVAL HISTORY: The patient is doing really well from a respiratory standpoint. He is breathing comfortably. He has no complaints of chest discomfort, nausea, or vomiting. He is on mechanical ventilator. He is waking up from sedation currently and voices no concerns. PHYSICAL EXAMINATION: VITAL SIGNS: Currently, afebrile. Pulse 105, blood pressure 128/81, respirations 29, saturation 91%, on 37% FiO2 and a PEEP of 5. GENERAL: The patient is awake and alert, on mechanical ventilator. He is a little bit somnolent, but moves all extremities with command. HEENT: Normocephalic and atraumatic. Sclerae white. Conjunctivae pink. Oral mucosa is moist without lesions. LUNGS: Decent air entry. There is a prolonged expiratory phase. Polyphonic wheezing is present. No dependent crackles are heard as of yet. HEART: Tachycardic. Regular. ABDOMEN: Soft, nontender, and nondistended. Bowel sounds are positive. MUSCULOSKELETAL: No cyanosis or clubbing. There is no pitting in the bilateral lower extremities. No tenting is present. NEUROLOGIC: Grossly nonfocal. LABORATORY DATA: WBC 17.6, hemoglobin 9.9, and platelets 296,000. PH 7.50, pCO2 of 47, pO2 of 66, corresponding to a saturation of 94% while he was on 40% FiO2. Potassium 2.8. Basic metabolic profile is otherwise unremarkable. Calcium is gently downtrending to 12.6. Lactate 2.0. BNP 116. TSH 1. Liver function studies are otherwise unremarkable. Urinalysis is positive for hyaline casts and other nonspecific findings. Blood cultures x2, urine culture, and influenza A and B are unremarkable. IMAGING STUDIES: CTA of the chest demonstrates right hilar/lower lobe pulmonary mass which is larger compared to prior. There is an endotracheal tube in place, which terminates in a good position. The entirety of the right lower lobe seems to be atelectatic behind this endobronchial mass. Enteric catheter courses into stomach. ASSESSMENT: 1. Hypercalcemia. 2. Metabolic encephalopathy, resolved. 3. Acute hypoxic respiratory failure. 4. Chronic obstructive pulmonary disease with acute exacerbation. 5. Squamous-cell carcinoma of the lung, never having been treated. DISCUSSION AND PLAN: I will put the patient on a spontaneous breathing trial. If he meets criteria, extubation will be considered. We will continue steroids, antibiotics, and nebulized medication. Most of these will be converted over to p.o. The hypercalcemia is being treated well. We will start our mobilization efforts and enlist help from physical therapy. Potassium will be replete today. Pulmonary will continue to follow in this location. CRITICAL CARE TIME: 30 minutes. Job ID: [id number] MTDD
--- NOTE | 2019-07-14 15:27 | PDOC.PALCO ---
Palliative Care Consult - Consult Details Requesting Physician: Dr Neff Reason for Consult: goals of care, assistance with communication prognosis/ disease Family Members Present: None - Pertinent HPI 64 year old male was found with altered mental status for unknown period of time. transported to Psychiatric and intubated in route secondary to acute respiratory failure, encephalopathy. Transferred to ICU for monitoring and IV hydration and calcitonin. History of lung cancer, patient confused. - Pertinent PMH COPD, Hypertension, Lung cancer - Social History Smoking Status: Current every day smoker Smoking: cigarettes Alcohol Use: occasional Drug Use History: none Living Situation: independent - Medications MAR Reviewed: Yes - Allergies Allergies/Adverse Reactions: Allergies Allergy/AdvReac Type Severity Reaction Status Date / Time No Known Allergies Allergy Unverified 07/23/17 12:44 - Subjective Awake, on O2 vial NC, hooper in place draining yellow urine. Confused, knows he is in the hospital but unaware of time, location. Speech soft and weak. ROS: Numbness to feet, confused. Otherwise 10 point review negative. - Objective Vital Signs: Vital Signs - Most Recent Temp Pulse Resp BP Pulse Ox 98.3 F 106 H 24 H 123/80 98 07/14/19 12:00 07/14/19 12:58 07/14/19 12:58 07/14/19 10:40 07/14/19 12:00 Palliative Performance Scale: 30 - Physical Exam Constitutional: confusion Deviation from normal: Pallor, ill appearing, poor hygiene HEENT: moist MMs, sclera anicteric, EOMI Deviation from normal: Adventicious lung sounds, diminished to bases Cardiovascular: RRR, no significant murmur Gastrointestinal: soft, non-tender Musculoskeletal: pulses present, edema present Neurological: moves all 4 limbs Deviation from normal: numbness to feet bilaterally Deviation from normal: confused, lethargic Deviation from normal: Delayed cap refill to feet, dry - Problem List (1) Palliative care encounter Code(s): Z51.5 - ENCOUNTER FOR PALLIATIVE CARE Current Visit: Yes Status: Acute (2) Acute respiratory failure with hypoxemia Code(s): J96.01 - ACUTE RESPIRATORY FAILURE WITH HYPOXIA Current Visit: Yes Status: Acute (3) Encephalopathy acute Code(s): G93.40 - ENCEPHALOPATHY, UNSPECIFIED Current Visit: Yes Status: Acute (4) Lung cancer, lower lobe Code(s): C34.30 - MALIGNANT NEOPLASM OF LOWER LOBE, UNSP BRONCHUS OR LUNG Current Visit: Yes Status: Chronic Qualifiers: Laterality: unspecified laterality Qualified Code(s): C34.30 - Malignant neoplasm of lower lobe, unspecified bronchus or lung - Plan/Recommendations Plan: Initiated palliative Care consult. Patient confused. Palliative Care will follow 07/15 and as encephalopathy improves will address resuscitation status, MPOA, and goals of care in relation to chronic disease processes and identify if additional support is needed for discharge. [40] minutes spent on this encounter with >50% of the time in counseling and coordination of care. Thank you for this very appropriate consult.
[2019-07-14] MEDS: Enoxaparin Sodium 40 MG/0.4 ML SYRINGE SC SCH (20:17)
[2019-07-15] MEDS: Sodium Chloride 0.45% 1,000 ML IV SCH ×3 (02:17→18:36)
[2019-07-15] MEDS: Cefepime 1 GM in Sodium Chloride 0.9% 100 ML IVPB SCH ×2 (02:17→16:31)
[2019-07-15] MEDS: Azithromycin 500 MG in Sodium Chloride 0.9% 250 ML 250 ML IVPB SCH (04:22)
[2019-07-15] MEDS: predniSONE 20 MG TAB PO SCH (09:09)
--- NOTE | 2019-07-15 09:52 | PRG ---
DATE OF SERVICE: 07/15/2019 SERVICE: Pulmonary Medicine. INTERVAL HISTORY: The patient is doing fine from respiratory standpoint. He is breathing comfortably. There has been no interval change to his condition. He tolerated extubation just fine. Yesterday, he has been weaned down to 1 L nasal cannula. He got a little bit of confusion last night. Otherwise, there were no significant events. There are no fevers, chills, or sweats. He does not have any chest discomfort. PHYSICAL EXAMINATION: VITAL SIGNS: Afebrile currently with a T-max of 99.7. Pulse 120, blood pressure 125/73, respirations 26, and saturation 94%, currently on 1 L nasal cannula. GENERAL: The patient is awake and alert, in no apparent distress. LUNGS: Decent air entry. There is a prolonged expiratory phase, but no significant wheezing is present. HEART: Normal rate and regular. ABDOMEN: Soft, nontender, and nondistended. Bowel sounds are positive. MUSCULOSKELETAL: No cyanosis or clubbing. There is no pitting in the bilateral lower extremities. NEUROLOGIC: Grossly nonfocal. LABORATORIES: All laboratories were not performed this morning. Blood cultures x2, urine culture are negative. Influenza A and B are unremarkable. ASSESSMENT: 1. Hypercalcemia, resolving. 2. Metabolic encephalopathy, resolved. 3. Squamous cell carcinoma of the lung, having never undergone treatment since 2-1/2 years ago. 4. Chronic obstructive pulmonary disease with acute exacerbation. 5. Acute on chronic hypoxic respiratory failure, resolved to baseline. DISCUSSION AND PLAN: The patient is stable for transition out of the ICU to the telemetry unit. Palliative care discussions are progressing. We will continue his antibiotics, nebulized medications, and steroids. These will be discontinued after a total duration of 5 days. Sommers catheter will be removed, we will get the patient into a chair and have more with physical therapy. Job ID: [id number]
--- NOTE | 2019-07-15 11:36 | PDOC.HOSPP ---
- Subjective Encounter Date: 07/15/19 Encounter Time: 11:34 Subjective: awake, extubated, no appropriate verbalization - Objective Vital Signs & Weight: Vital Signs (12 hours) Temp Pulse Resp Pulse Ox 07/15/19 10:00 100.9 F H 07/15/19 08:00 96 07/15/19 07:02 95 07/15/19 06:53 128 H 20 95 07/15/19 04:00 99.7 F H 07/15/19 02:36 95 07/15/19 00:42 116 H 22 H 100 Weight Admit Weight 259 lb Weight 259 lb 4.218 oz Most Recent Monitor Data Heart Rate from ECG 137 NIBP 127/73 NIBP BP-Mean 91 Respiration from ECG 33 SpO2 95 I&O: 07/14/19 07/15/19 07/16/19 06:59 06:59 06:59 Intake Total 3867 3590 120 Output Total 1100 1205 60 Balance 2767 2385 60 Result Diagrams: 07/14/19 04:57 07/14/19 04:57 Hospitalist ROS - Medication Medications: Active Medications Generic Name Dose Route Start Last Admin Trade Name Freq PRN Reason Stop Dose Admin Albuterol/Ipratropium 3 ml 07/13/19 13:00 07/15/19 06:53 Duoneb NEB 3 ml [id number] CHIDI Administration Enoxaparin Sodium 40 mg 07/13/19 21:00 07/14/19 20:17 Lovenox SC 40 mg 2100 CHIDI Administration Cefepime HCl 1 gm/ Sodium 100 mls @ 200 mls/hr 07/13/19 15:00 07/15/19 02:17 Chloride IVPB 100 mls 0300,1500 CHIDI Administration Azithromycin 500 mg/ Sodium 250 mls @ 250 mls/hr 07/14/19 04:30 07/15/19 04: 22 Chloride IVPB 250 mls Q24HR CHIDI Administration Sodium Chloride 1,000 mls @ 100 mls/hr 07/14/19 12:30 07/15/19 07:38 1/2 Normal Saline IV 1,000 mls .Q10H CHIDI Administration Prednisone 40 mg 07/15/19 08:00 07/15/19 09:09 Prednisone PO 07/17/19 08:01 40 mg QAM-WM CHIDI Administration Sodium Chloride 10 ml 07/13/19 09:00 07/15/19 07:39 Flush - Normal Saline IVF Not Given Q12HR CHIDI - Exam Neck: no JVD Heart: RRR, no murmur Respiratory - other findings: coarse BS with rhonchi Gastrointestinal: normal bowel sounds Extremities: no edema Hosp A/P (1) Encephalopathy acute Code(s): G93.40 - ENCEPHALOPATHY, UNSPECIFIED Status: Acute (2) Hypercalcemia of malignancy Code(s): E83.52 - HYPERCALCEMIA Status: Acute (3) Acute respiratory failure with hypoxemia Code(s): J96.01 - ACUTE RESPIRATORY FAILURE WITH HYPOXIA Status: Acute (4) Lung cancer, lower lobe Code(s): C34.30 - MALIGNANT NEOPLASM OF LOWER LOBE, UNSP BRONCHUS OR LUNG Status: Chronic Qualifiers: Laterality: unspecified laterality Qualified Code(s): C34.30 - Malignant neoplasm of lower lobe, unspecified bronchus or lung (5) Hypokalemia Code(s): E87.6 - HYPOKALEMIA Status: Acute - 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
[2019-07-15] MEDS ORDERED: Metoprolol Tartrate 25 MG TAB PO SCH (11:45)
[2019-07-15 12:33] LABS: Anion Gap 11 mmol/L (10-20); BUN (Urea Nitrogen) 11 mg/dL (8.4-25.7); Calc. Creatinine Clearance 163 mL/min (70-130); Calcium 11.1 mg/dL (7.8-10.44); Carbon Dioxide 31 mmol/L (23-31); Chloride 104 mmol/L (98-107); Estimated GFR-MDRD Greater than 90; Glucose 109 mg/dL (80-115); Potassium 3.3 mmol/L (3.5-5.1); Sodium 143 mmol/L (136-145)
--- NOTE | 2019-07-15 15:33 | PQF ---
CLINICAL DOCUMENTATION IMPROVEMENT CLARIFICATION FORM: ICD-10 Updated PLEASE DO AN ADDENDUM TO THE PROGRESS NOTE WITH ANY DOCUMENTATION UPDATES OR ADDITIONS AND CARRY THROUGH TO DC SUMMARY. THANK YOU. DATE: 07/15/19 ATTN : DR. CHING Please exercise your independent, professional judgment in responding to the clarification form. Clinical indicators are provided on the bottom of this form for your review Please check appropriate box(es): [ ] Sepsis due to: (Pna, UTI, gangrenous gall bladder, etc.) Due to: [ ] Device (please specify) [ ] Implant [ ] Graft [ ] Infusion [ ] SIRS due to non-infectious process (please specify etiology) [ ] with organ dysfunction [ ] without organ dysfunction [ ] Severe sepsis with acute organ dysfunction of: (Examples: respiratory failure, encephalopathy, acute kidney failure, other) [ ] Septic Shock [ ] Localized infection without sepsis [ ] Other diagnosis [ ] Unable to determine In addition, please specify: Present on Admission (POA): [ ] Yes [ ] No [ ] Unable to determine For continuity of documentation, please document condition throughout progress notes and discharge summary. Thank You. CLINICAL INDICATORS - SIGNS / SYMPTOMS / LABS H&P 07/14: "LACTIC ACIDOSIS, LIKELY SECONDARY TO SEPSIS" ER NOTE 07/13: PULSE 129 BP 89/68 WBC 07/14: 17.6 LACTIC ACID 07/13: 2.6 RISKS: HTN (ER NOTE 07/13) COPD (ER NOTE 07/13) ENCEPHALOPATHY (PROGRESS NOTE07/15) TREATMENT: IV ZITHROMAX (ER 07/13-PRESENT) IV FLUIDS (ER 07/13) IV CEFEPIME (ER 07/13 -07/15) IV FLUIDS (07/14-07/15) BLOOD CULTURES (07/13) (This form is maintained as a part of the permanent medical record) 2014 [employer], [employer] All Rights Reserved [email or web address] Office: [phone] [facility]
[2019-07-15] MEDS: Metoprolol Tartrate 25 MG TAB PO SCH (20:13)
[2019-07-15] MEDS: Enoxaparin Sodium 40 MG/0.4 ML SYRINGE SC SCH (20:13)
[2019-07-15] MEDS ORDERED: Potassium Chloride 20 MEQ TAB PO SCH (21:00)
--- NOTE | 2019-07-15 23:52 | EKG ---
Test Reason : Blood Pressure : / mmHG Vent. Rate : 130 BPM Atrial Rate : 130 BPM P-R Int : 146 ms QRS Dur : 104 ms QT Int : 292 ms P-R-T Axes : 056 076 -80 degrees QTc Int : 429 ms Sinus tachycardia Possible Inferior infarct (cited on or before 13-JUL-2019) Abnormal ECG When compared with ECG of 13-JUL-2019 02:29, (Unconfirmed) Premature ventricular complexes are no longer Present Confirmed by Elizabeth ROMERO ([id number]) on 07/15/2019 11:51:53 PM Referred By: NOHEMY Confirmed By:Elizabeth ROMERO
[2019-07-16] MEDS: Cefepime 1 GM in Sodium Chloride 0.9% 100 ML IVPB SCH (02:30)
[2019-07-16] MEDS: Sodium Chloride 0.45% 1,000 ML IV SCH (04:03)
[2019-07-16] MEDS: Azithromycin 500 MG in Sodium Chloride 0.9% 250 ML 250 ML IVPB SCH (04:15)
[2019-07-16 05:14] LABS: Anion Gap 10 mmol/L (10-20); BUN (Urea Nitrogen) 14 mg/dL (8.4-25.7); Calc. Creatinine Clearance 173 mL/min (70-130); Calcium 9.9 mg/dL (7.8-10.44); Carbon Dioxide 30 mmol/L (23-31); Chloride 103 mmol/L (98-107); Estimated GFR-MDRD Greater than 90; Glucose 140 mg/dL (80-115); Magnesium 1.5 mg/dL (1.6-2.6); Potassium 3.9 mmol/L (3.5-5.1); Sodium 139 mmol/L (136-145)
[2019-07-16 05:21] LABS: Mean Corpuscular HGB CONC 30.6 g/dL (32.0-36.0); Mean Corpuscular Hemoglobin 22.5 pg (27.0-31.0); Mean Corpuscular Volume 73.6 fL (78.0-98.0); Mean Platelet Volume 8.1 fL (7.4-10.4); Platelet Count 315 thou/uL (130-400); RBC Distribution Width 16.7 % (11.5-14.5); Red Blood Cell (RBC) Count 3.98 mill/uL (4.70-6.10); White Blood Cell (WBC) Count 17.8 thou/uL (4.8-10.8)
[2019-07-16 05:32] LABS: Phosphorus 1.1 mg/dL (2.3-4.7)
[2019-07-16 05:42] LABS: Band 3 % (5-11); Lymphocytes 1 % (21-51); MDiff Complete? YES; Neutrophil 96 % (42-75)
[2019-07-16] MEDS ORDERED: Potassium Phosphate 15 MMOL in Sodium Chloride 0.9% 250 ML 250 ML IVPB SCH (06:15)
[2019-07-16] MEDS ORDERED: Magnesium Sulfate 4 GM in Sodium Chloride 0.9% 250 ML 250 ML IVPB SCH (09:15)
[2019-07-16] MEDS ORDERED: Amoxicillin/Potassium Clav 875 MG TAB PO SCH (09:15)
--- NOTE | 2019-07-16 09:42 | PRG ---
DATE OF SERVICE: 07/16/2019 SERVICE: Pulmonary Medicine. INTERVAL HISTORY: The patient is doing really well from respiratory standpoint. He is breathing comfortably. He has much more tone today. He does not look to be toxic any longer. He is awake and alert. He is still a little bit confused, but less impulsive today. He has not ripped out any IVs last night. PHYSICAL EXAMINATION: VITAL SIGNS: Afebrile, pulse 94, blood pressure 132/78, respirations 26, saturation 97% on room air. GENERAL: The patient is awake and alert, in no apparent distress. LUNGS: Decent air entry. No prolonged expiratory phase or wheezing is appreciated. HEART: Normal rate, regular. ABDOMEN: Soft, nontender, nondistended, bowel sounds are positive. MUSCULOSKELETAL: No cyanosis or clubbing. No pitting in the bilateral lower extremities. NEUROLOGIC: Grossly nonfocal. LABORATORY DATA: WBC 17.8, hemoglobin 9.0 and gently downtrending, and platelets 315,000. Basic metabolic profile is unremarkable. Magnesium is 1.5, phosphorus 1.1. Urinalysis is essentially rios positive. Blood cultures x2, urine culture, influenza are all unremarkable to date. ASSESSMENT: 1. Metabolic encephalopathy, improving. 2. Hypercalcemia, resolved. 3. Squamous cell carcinoma of the lung. 4. Chronic obstructive pulmonary disease with acute exacerbation, improving. 5. Acute on chronic hypoxic respiratory failure, back to baseline. DISCUSSION AND PLAN: The patient remains stable for transition out of the ICU to the telemetry unit. When he lands on the floor, he will have no further requirements for inpatient Pulmonary or Critical Care opinion, and I will sign off. Antibiotics can be discontinued after a total duration of 7 days. Steroids will be stopped after 5 days. Magnesium and phosphorus will be replaced today. If he has any significant setbacks on the floor, please notify me. Since he is tolerating p.o., IV fluids will be interrupted. Job ID: [id number]
[2019-07-16] MEDS: predniSONE 20 MG TAB PO SCH (10:34)
[2019-07-16] MEDS: Metoprolol Tartrate 25 MG TAB PO SCH ×2 (10:35→20:23)
--- NOTE | 2019-07-16 13:56 | PDOC.HOSPP ---
- Subjective Encounter Date: 07/16/19 Encounter Time: 13:55 Subjective: 64 y/o male with HTN, COPD, ALCIRA and untreated lung cancer admitted with AMS and respiratory failure with hypoxia. Patient was intubated at home due to severe hypoxia. Improved and was extubated on 07/14/2019. Having diarrhea. - Objective Vital Signs & Weight: Vital Signs (12 hours) Temp Pulse Resp Pulse Ox 07/16/19 08:17 99 07/16/19 08:00 99.1 F 07/16/19 07:32 99 30 H 97 07/16/19 04:00 99.1 F Weight Admit Weight 259 lb Weight 259 lb 4.218 oz Most Recent Monitor Data Heart Rate from ECG 119 NIBP 113/77 NIBP BP-Mean 89 Respiration from ECG 23 SpO2 95 I&O: 07/15/19 07/16/19 07/17/19 06:59 06:59 06:59 Intake Total 3590 2648 420 Output Total 1205 60 Balance 2385 2588 420 Result Diagrams: 07/16/19 03:45 07/16/19 03:45 Hospitalist ROS - Medication Medications: Active Medications Generic Name Dose Route Start Last Admin Trade Name Freq PRN Reason Stop Dose Admin Albuterol/Ipratropium 3 ml 07/13/19 13:00 07/16/19 07:32 Duoneb NEB 3 ml [id number] CHIDI Administration Enoxaparin Sodium 40 mg 07/13/19 21:00 07/15/19 20:13 Lovenox SC 40 mg 2100 CHIDI Administration Metoprolol Tartrate 25 mg 07/15/19 21:00 07/16/19 10:35 Lopressor PO 25 mg BID CHIDI Administration Prednisone 40 mg 07/15/19 08:00 07/16/19 10:34 Prednisone PO 07/17/19 08:01 40 mg QAM-WM CHIDI Administration Sodium Chloride 10 ml 07/13/19 09:00 07/16/19 10:35 Flush - Normal Saline IVF Not Given Q12HR CHIDI - Exam General Appearance: awake alert General - other findings: obese Eye: anicteric sclera ENT: normocephalic atraumatic Neck: symmetric Heart: RRR, murmur present Respiratory - other findings: fair air entry with scattered transmitted sound Gastrointestinal: non-tender, non-distended, normal bowel sounds Gastrointestinal - other findings: obese Extremities: 1+ LE edema Neurological: cranial nerve grossly intact, no focal deficits Psychiatric: A&O x 3 Hosp A/P (1) Acute respiratory failure with hypoxemia Code(s): J96.01 - ACUTE RESPIRATORY FAILURE WITH HYPOXIA Status: Acute (2) Hypercalcemia of malignancy Code(s): E83.52 - HYPERCALCEMIA Status: Acute (3) Acute metabolic encephalopathy Code(s): G93.41 - METABOLIC ENCEPHALOPATHY Status: Acute (4) Hypophosphatemia Code(s): E83.39 - OTHER DISORDERS OF PHOSPHORUS METABOLISM Status: Acute (5) Frequent loose stools Code(s): R19.7 - DIARRHEA, UNSPECIFIED Status: Acute (6) Obesity (BMI 30-39.9) Code(s): E66.9 - OBESITY, UNSPECIFIED Status: Acute (7) Microcytic anemia Code(s): D50.9 - IRON DEFICIENCY ANEMIA, UNSPECIFIED Status: Acute (8) Mediastinal mass Status: Acute (9) Dehydration Code(s): E86.0 - DEHYDRATION Status: Acute (10) Hypokalemia Code(s): E87.6 - HYPOKALEMIA Status: Acute (11) Lung cancer, lower lobe Code(s): C34.30 - MALIGNANT NEOPLASM OF LOWER LOBE, UNSP BRONCHUS OR LUNG Status: Chronic Qualifiers: Laterality: unspecified laterality Qualified Code(s): C34.30 - Malignant neoplasm of lower lobe, unspecified bronchus or lung - Plan Continue antibiotic and bronchodilators Replete serum potassium and phosp Get C dif toxin assay Oxygen as tolerated. Oncology and pulm following.
[2019-07-16] MEDS: Enoxaparin Sodium 40 MG/0.4 ML SYRINGE SC SCH (20:22)
[2019-07-16] MEDS: Amoxicillin/Potassium Clav 875 MG TAB PO SCH (20:23)
[2019-07-16] MEDS: PHOS-NAK 1 PKT PACK PO SCH (20:23)
[2019-07-17 04:21] LABS: Phosphorus 1.4 mg/dL (2.3-4.7)
[2019-07-17 04:24] LABS: Anion Gap 11 mmol/L (10-20); BUN (Urea Nitrogen) 15 mg/dL (8.4-25.7); Calc. Creatinine Clearance 166 mL/min (70-130); Calcium 8.4 mg/dL (7.8-10.44); Carbon Dioxide 28 mmol/L (23-31); Chloride 101 mmol/L (98-107); Estimated GFR-MDRD Greater than 90; Glucose 154 mg/dL (80-115); Potassium 3.8 mmol/L (3.5-5.1); Sodium 136 mmol/L (136-145)
[2019-07-17] MEDS ORDERED: Potassium Phosphate 15 MMOL in Sodium Chloride 0.9% 250 ML 250 ML IVPB SCH (04:45)
[2019-07-17 04:50] LABS: Hemoglobin 8.6 g/dL (14.0-18.0); Mean Corpuscular HGB CONC 30.7 g/dL (32.0-36.0); Mean Corpuscular Hemoglobin 22.5 pg (27.0-31.0); Mean Corpuscular Volume 73.1 fL (78.0-98.0); Platelet Count 268 thou/uL (130-400); RBC Distribution Width 16.8 % (11.5-14.5); Red Blood Cell (RBC) Count 3.84 mill/uL (4.70-6.10); White Blood Cell (WBC) Count 13.2 thou/uL (4.8-10.8)
[2019-07-17 04:51] LABS: Anisocytosis SLIGHT = 6-15 cells (100X) (0-5/hpf); Band 3 % (5-11); Hypochromia SLIGHT = 6-15 cells (100X) (0-5/hpf); Lymphocytes 5 % (21-51); MDiff Complete? YES; Microcytosis SLIGHT = 6-15 cells (100X) (0-5/hpf); Monocytes 3 % (0-10); Neutrophil 89 % (42-75); Platelet Morphology Comment Appears Adequate
[2019-07-17] MEDS: Amoxicillin/Potassium Clav 875 MG TAB PO SCH ×2 (08:54→20:53)
[2019-07-17] MEDS: Metoprolol Tartrate 25 MG TAB PO SCH ×2 (08:54→20:53)
[2019-07-17] MEDS: predniSONE 20 MG TAB PO SCH (08:54)
[2019-07-17] MEDS: PHOS-NAK 1 PKT PACK PO SCH ×2 (08:55→20:53)
[2019-07-17] MEDS ORDERED: Loperamide HCl 1 MG/7.5 ML UDCUP PO PRN (10:01)
--- NOTE | 2019-07-17 10:06 | PDOC.HOSPP ---
- Subjective Encounter Date: 07/17/19 Encounter Time: 09:45 Subjective: Per nursing staff the patient is having diarrhea approximately seven times an hour. Patient admitted for altered mental status secondary to hypercalcemia and respiratory failure. Patient is extubated, started eating food last night. Was pulling out IV yesterday and required a sitter, but today nurse does not feel that he needs one. Patient denies abdominal pain, blood in stools, states stools are loose at home sometimes. He has chronic shortness of breath on exertion, dry cough. Patient states he has history of old rib fractures - Objective Vital Signs & Weight: Vital Signs (12 hours) Pulse Resp Pulse Ox 07/17/19 08:00 95 07/17/19 06:47 92 26 H 94 L 07/16/19 23:37 95 Weight Admit Weight 259 lb Weight 259 lb 4.218 oz Most Recent Monitor Data Heart Rate from ECG 105 NIBP 120/71 NIBP BP-Mean 87 Respiration from ECG 32 SpO2 95 I&O: 07/16/19 07/17/19 07/18/19 06:59 06:59 06:59 Intake Total 2648 1839.3 360 Output Total 60 Balance 2588 1839.3 360 Result Diagrams: 07/17/19 03:40 07/17/19 03:40 Radiology Reviewed by me: Yes EKG Reviewed by me: Yes (sinus tachycardia) Hospitalist ROS - Review of Systems Constitutional: denies: fever, chills Eyes: denies: vision change Respiratory: reports: cough, dry Cardiovascular: reports: other (reports old rib fractures in second, fourth and fifth rib with chronic pain) Gastrointestinal: denies: nausea, vomiting, abdominal pain, diarrhea Skin: denies: rash - Medication Medications: Active Medications Generic Name Dose Route Start Last Admin Trade Name Freq PRN Reason Stop Dose Admin Albuterol/Ipratropium 3 ml 07/13/19 13:00 07/17/19 06:47 Duoneb NEB 3 ml [id number] CHIDI Administration Amoxicillin/Clavulanate Potassium 875 mg 07/16/19 21:00 07/17/19 08:54 Augmentin PO 07/21/19 21:01 875 mg Q12HR CHIDI Administration Enoxaparin Sodium 40 mg 07/13/19 21:00 07/16/19 20:22 Lovenox SC 40 mg 2100 CHIDI Administration Metoprolol Tartrate 25 mg 07/15/19 21:00 07/17/19 08:54 Lopressor PO 25 mg BID CHIDI Administration Miscellaneous Medication 1 pkt 07/16/19 21:00 07/17/19 08:55 Phos-Nak PO 1 pkt BID CHIDI Administration Sodium Chloride 10 ml 07/13/19 09:00 07/17/19 08:56 Flush - Normal Saline IVF 10 ml Q12HR CHIDI Administration - Exam General Appearance: NAD, awake alert Eye: PERRL, anicteric sclera ENT: normocephalic atraumatic Neck: negative: no JVD Heart: negative: RRR, no murmur, no gallops, no rubs Respiratory - other findings: Crackles in right lower lung base Gastrointestinal: soft, non-tender, non-distended Gastrointestinal - other findings: Obese Extremities: no cyanosis, no clubbing Skin: normal turgor, no lesions Neurological: cranial nerve grossly intact, no focal deficits, no new deficit Musculoskeletal: normal tone, normal strength Psychiatric: normal affect, normal behavior, oriented to place, oriented to time Hosp A/P (1) Acute respiratory failure with hypoxemia Code(s): J96.01 - ACUTE RESPIRATORY FAILURE WITH HYPOXIA Status: Acute Plan: S/p extubation. Xray shows RLL opacity, possibly pneumonia vs lung cancer Steroids discontinued today (2) Acute metabolic encephalopathy Code(s): G93.41 - METABOLIC ENCEPHALOPATHY Status: Acute Plan: Improved s/p extubation. D/c sitter. Currently oriented to place and year, but not month. BLood and urine cultures negative. (3) Hypercalcemia of malignancy Code(s): E83.52 - HYPERCALCEMIA Status: Acute Plan: Calcium normalized. Continue to monitor (4) Lung cancer, lower lobe Code(s): C34.30 - MALIGNANT NEOPLASM OF LOWER LOBE, UNSP BRONCHUS OR LUNG Status: Chronic Qualifiers: Laterality: unspecified laterality Qualified Code(s): C34.30 - Malignant neoplasm of lower lobe, unspecified bronchus or lung Plan: Oncology consulted, currently recommending no staging workup for now Palliative care consultation for goals of care. Patient states he had surgery in past for his lung, but history seems unreliable. Not on chemo (5) Hypophosphatemia Code(s): E83.39 - OTHER DISORDERS OF PHOSPHORUS METABOLISM Status: Acute Plan: patient got IV phos replacement today. Repeat phos level today. Encourage po intake (6) Diarrhea Code(s): R19.7 - DIARRHEA, UNSPECIFIED Status: Acute Plan: C diff negative, likely from antibiotics. Send stool ova and parasites. STart imodium (7) Community acquired pneumonia Code(s): J18.9 - PNEUMONIA, UNSPECIFIED ORGANISM Status: Acute Qualifiers: Laterality: right Lung location: lower lobe of lung Qualified Code(s): J18.1 - Lobar pneumonia, unspecified organism Plan: RLL opacity on X ray, like cancer but given significant hypoxia and response to antibiotics, will continue empiric treatment. Was on cefepime from 07/13 to 07/16 , switched to augmentin 07/16. Continue for another two days - send sputum culture (8) Microcytic anemia Code(s): D50.9 - IRON DEFICIENCY ANEMIA, UNSPECIFIED Status: Acute Plan: Hb 8.6. Check iron panel, B12, folate. Could be from malignancy - Plan PT/OT, out of bed/ambulate, DVT proph w/lovenox Consults: Palliative Care, other (transfer to the floor) Transfer to the floor without sitter
[2019-07-17 10:49] LABS: Phosphorus 1.8 mg/dL (2.3-4.7)
--- NOTE | 2019-07-17 10:57 | PRG ---
DATE OF SERVICE: 07/17/2019 SERVICE: Pulmonary Medicine. INTERVAL HISTORY: The patient is really doing quite well from respiratory standpoint. He has weaned down to 1 L nasal cannula. His oxygen saturations are fantastic. His blood pressure is good. His heart rate is stable. He cannot provide any additional elements of the history. Otherwise, there has been no interval change to his condition, however. He is tolerating p.o. just fine. PHYSICAL EXAMINATION: VITAL SIGNS: Afebrile. Pulse 93, blood pressure 120/71, respirations 28, saturation 95%, currently on 2 L nasal cannula. GENERAL: The patient is awake and alert, in no apparent distress. LUNGS: Wonderful air entry. There is no prolonged expiratory phase. Dependent crackles are minimal. HEART: Normal rate and regular. ABDOMEN: Soft, nontender, nondistended. Bowel sounds are positive. MUSCULOSKELETAL: No cyanosis or clubbing. There is trace pitting in bilateral lower extremities. NEUROLOGIC: Grossly nonfocal. LABORATORY DATA: WBC 13.2, hemoglobin 8.6 and roughly stable, platelets 268,000. Basic metabolic profile is completely unremarkable, though his phosphorus is only 1.4. Magnesium is stable at 2.0. Blood cultures x2, urinalysis, influenza A and B, and C diff antigen and toxin are unremarkable. ASSESSMENT: 1. Hypercalcemia, secondary to cancer. 2. Metabolic encephalopathy, resolved. 3. Squamous cell carcinoma of the lung. 4. Chronic obstructive pulmonary disease with minimal exacerbation, resolving. 5. Acute on chronic hypoxic respiratory failure, back to baseline. DISCUSSION AND PLAN: The patient is stable for transition out of the ICU. At this point, he does not even require the telemetry unit. He can go to the medical floor. I will need to work on disposition on him. Antibiotics can be stopped after 7 days. I will switch him over to a p.o. regimen. Steroids will be stopped after a total duration of 5 days. I will recheck electrolytes tomorrow morning. I will continue encouraging mobility. Job ID: [id number]
[2019-07-17] MEDS: Loperamide HCl 2 MG CAP PO PRN (19:00)
[2019-07-17] MEDS: Enoxaparin Sodium 40 MG/0.4 ML SYRINGE SC SCH (20:53)
[2019-07-17] MEDS: Acetaminophen 325 MG TAB PO PRN (20:54)
--- NOTE | 2019-07-18 00:03 | EKG ---
Test Reason : Blood Pressure : / mmHG Vent. Rate : 119 BPM Atrial Rate : 119 BPM P-R Int : 170 ms QRS Dur : 110 ms QT Int : 318 ms P-R-T Axes : 073 077 268 degrees QTc Int : 447 ms Sinus tachycardia with occasional Premature ventricular complexes Possible Inferior infarct , age undetermined Abnormal ECG Confirmed by YOLANDA BURNHAM M.D. ([id number]), subeditor SONU CHING ([id number]) on 07/18/2019 12:03:15 AM Referred By: Confirmed By:YOLANDA BURNHAM M.D.
[2019-07-18 07:36] LABS: ALT (SGPT) 35 U/L (8-55); AST (SGOT) 32 U/L (5-34); Albumin 2.2 g/dL (3.4-4.8); Alkaline Phosphatase 307 U/L (40-110); Anion Gap 9 mmol/L (10-20); BUN (Urea Nitrogen) 11 mg/dL (8.4-25.7); Bilirubin, Total 0.5 mg/dL (0.2-1.2); Calc. Creatinine Clearance 204 mL/min (70-130); Calcium 7.3 mg/dL (7.8-10.44); Carbon Dioxide 27 mmol/L (23-31); Chloride 103 mmol/L (98-107); Estimated GFR-MDRD Greater than 90; Globulin 3.2 g/dL (2.4-3.5); Glucose 150 mg/dL (80-115); Iron 34 ug/dL (65-175); Phosphorus 1.5 mg/dL (2.3-4.7); Potassium 3.8 mmol/L (3.5-5.1); Protein, Total 5.4 g/dL (5.8-8.1); Sodium 135 mmol/L (136-145); Transferrin, Serum 117 mg/dL (163-344)
[2019-07-18 08:01] LABS: Band 3 % (5-11); Eosinophils 2 % (0-10); Hemoglobin 8.3 g/dL (14.0-18.0); Lymphocytes 9 % (21-51); MDiff Complete? YES; Mean Corpuscular HGB CONC 30.5 g/dL (32.0-36.0); Mean Corpuscular Hemoglobin 22.2 pg (27.0-31.0); Mean Corpuscular Volume 72.6 fL (78.0-98.0); Mean Platelet Volume 7.4 fL (7.4-10.4); Monocytes 3 % (0-10); Neutrophil 83 % (42-75); Platelet Count 243 thou/uL (130-400); RBC Distribution Width 17.1 % (11.5-14.5); Red Blood Cell (RBC) Count 3.74 mill/uL (4.70-6.10); White Blood Cell (WBC) Count 11.6 thou/uL (4.8-10.8)
[2019-07-18] MEDS: Metoprolol Tartrate 25 MG TAB PO SCH ×2 (08:39→20:16)
[2019-07-18] MEDS: PHOS-NAK 1 PKT PACK PO SCH (08:39)
[2019-07-18] MEDS: Amoxicillin/Potassium Clav 875 MG TAB PO SCH ×2 (08:39→20:16)
[2019-07-18] MEDS: Loperamide HCl 2 MG CAP PO PRN ×2 (08:44→18:22)
[2019-07-18] MEDS: Acetaminophen 325 MG TAB PO PRN (08:44)
[2019-07-18] MEDS ORDERED: Folic Acid 1 MG TAB PO SCH (09:30)
--- NOTE | 2019-07-18 15:58 | PRG ---
DATE OF SERVICE: 07/18/2019 SERVICE: Pulmonary Medicine. INTERVAL HISTORY: The patient is doing okay from mentation standpoint. He is awake and alert. He is tolerating p.o. That being said, he apparently has a little increasing work of breathing. He has a little bit of a cough, but not bringing up any sputum. There are no significant overnight events otherwise. PHYSICAL EXAMINATION: VITAL SIGNS: Afebrile. Pulse 94, blood pressure 108/64, respirations 20, and saturation 94% on 3 L nasal cannula. GENERAL: The patient is awake and alert, in no apparent distress. LUNGS: Decent air entry. Dependent crackles are now present. HEART: Normal rate and regular. ABDOMEN: Soft, nontender, nondistended. Bowel sounds are positive. MUSCULOSKELETAL: No cyanosis or clubbing. There is no pitting in the bilateral lower extremities. NEUROLOGIC: Grossly nonfocal. LABORATORY DATA: WBC 11.6, hemoglobin 8.3, platelets 243,000. Sodium 135, which is downtrending. Basic metabolic profile is otherwise unremarkable. Ferritin level is 1400. Liver function studies are otherwise unremarkable. Folate is below the assay limit of 1.6. Vitamin B12 falls within the lower limits of normal. Phosphorus 1.5. ASSESSMENT: 1. Hypercalcemia, secondary to cancer. 2. Metabolic encephalopathy, resolved. 3. Squamous cell carcinoma of the lung. 4. Chronic obstructive pulmonary disease with minimal exacerbation, worsening. 5. Acute on chronic hypoxic respiratory failure, at baseline. DISCUSSION AND PLAN: I am going to give the patient a brief course of steroids, and nebulized medications. Antibiotics will be continued. We will replace the phosphorus, magnesium, and potassium today. We will also replace his folate. I will give him a single dose of Lasix because he has fluffed out his lungs. Pulmonary/Critical Care will continue to follow for the time being. Job ID: [id number]
[2019-07-18] MEDS ORDERED: Potassium Phosphate 30 MMOL in Sodium Chloride 0.9% 500 ML IVPB SCH (16:00)
[2019-07-18] MEDS ORDERED: predniSONE 20 MG TAB PO SCH (16:00)
[2019-07-18] MEDS ORDERED: Furosemide 20 MG/2 ML VIAL SLOW IVP SCH (16:00)
[2019-07-18] MEDS ORDERED: Cyanocobalamin 1000 MCG/ML VIAL IM SCH (16:00)
[2019-07-18] MEDS ORDERED: Magnesium 2 GM/50 ML 2 GM in Premix Bag 1 BAG IVPB SCH (16:00)
[2019-07-18] MEDS ORDERED: Folic Acid 0.4 MG in Pre-Filled Syringe 1 EACH SC SCH (17:15)
[2019-07-18] MEDS: K-Phos Neutral 250 MG TAB PO SCH (17:46)
--- NOTE | 2019-07-18 19:15 | PDOC.HOSPP ---
- Subjective Encounter Date: 07/18/19 Encounter Time: 11:00 Subjective: The patient states he feels short of breath still and coughing some. Feels tired. He is aware of the day and the year. The patient states that he would like to receive treatment for his lung cancer. He is not very close to his family but would be interested in cancer treatment if he is a candidate. Patient states "I want to live until I can't no more." - Objective Vital Signs & Weight: Vital Signs (12 hours) Temp Pulse Resp BP Pulse Ox 07/18/19 18:27 112 H 22 H 93 L 07/18/19 16:00 100.1 F H 104 H 24 H 114/74 93 L 07/18/19 13:54 98.7 F 94 20 108/64 94 L 07/18/19 12:59 94 16 93 L 07/18/19 08:00 93 L 07/18/19 07:25 99.1 F 111 H 28 H 132/79 92 L Weight Admit Weight 259 lb Weight 259 lb 4.218 oz Most Recent Monitor Data Heart Rate from ECG 99 NIBP 102/64 NIBP BP-Mean 76 Respiration from ECG 17 SpO2 95 I&O: 07/17/19 07/18/19 07/19/19 06:59 06:59 06:59 Intake Total 1839.3 1060 1640 Output Total 1050 Balance 1839.3 1060 590 Result Diagrams: 07/18/19 06:50 07/18/19 06:50 Hospitalist ROS - Review of Systems Constitutional: denies: fever, chills Eyes: denies: vision change ENT: denies: ear discharge - Medication Medications: Active Medications Generic Name Dose Route Start Last Admin Trade Name Freq PRN Reason Stop Dose Admin Acetaminophen 650 mg 07/13/19 04:10 07/18/19 08:44 Tylenol PO 650 mg Q4H PRN Administration Headache/Fever/Mild Pain (1-3) Albuterol/Ipratropium 3 ml 07/13/19 13:00 07/18/19 18:27 Duoneb NEB 3 ml [id number] CHIDI Administration Amoxicillin/Clavulanate Potassium 875 mg 07/16/19 21:00 07/18/19 08:39 Augmentin PO 07/21/19 21:01 875 mg Q12HR CHIDI Administration Enoxaparin Sodium 40 mg 07/13/19 21:00 07/17/19 20:53 Lovenox SC 40 mg 2100 CHIDI Administration Folic Acid 0.4 mg/ 0.08 mls @ 0 mls/hr 07/18/19 17:15 07/18/19 18:20 Miscellaneous Medication SC 07/18/19 19:15 0.08 mls NOW CHIDI Administration As Directed Loperamide HCl 2 mg 07/17/19 13:21 07/18/19 18:22 Imodium PO 2 mg Q4H PRN Administration Diarrhea/Loose Stools Metoprolol Tartrate 25 mg 07/15/19 21:00 07/18/19 08:39 Lopressor PO 25 mg BID CHIDI Administration Phosphorus 250 mg 07/18/19 17:00 07/18/19 17:46 Kphos Neutral PO 250 mg BID-WM CHIDI Administration Sodium Chloride 10 ml 07/13/19 09:00 07/18/19 08:40 Flush - Normal Saline IVF 10 ml Q12HR CHIDI Administration - Exam General Appearance: NAD, awake alert Eye: PERRL, anicteric sclera ENT: normocephalic atraumatic, no oropharyngeal lesions Neck: supple, symmetric, no JVD Heart: RRR, no murmur, no gallops Respiratory: CTAB, no wheezes, no rales, no ronchi Gastrointestinal: soft, non-tender, non-distended Extremities: no cyanosis, no clubbing, no edema Skin: normal turgor, no lesions, no rashes Neurological: cranial nerve grossly intact, normal sensation to touch Musculoskeletal: normal tone, normal strength, no muscle wasting Psychiatric: normal affect, normal behavior, A&O x 3 Hosp A/P (1) Acute respiratory failure with hypoxemia Code(s): J96.01 - ACUTE RESPIRATORY FAILURE WITH HYPOXIA Status: Acute (2) Acute metabolic encephalopathy Code(s): G93.41 - METABOLIC ENCEPHALOPATHY Status: Acute (3) Hypercalcemia of malignancy Code(s): E83.52 - HYPERCALCEMIA Status: Acute (4) Lung cancer, lower lobe Code(s): C34.30 - MALIGNANT NEOPLASM OF LOWER LOBE, UNSP BRONCHUS OR LUNG Status: Chronic Qualifiers: Laterality: unspecified laterality Qualified Code(s): C34.30 - Malignant neoplasm of lower lobe, unspecified bronchus or lung (5) Hypophosphatemia Code(s): E83.39 - OTHER DISORDERS OF PHOSPHORUS METABOLISM Status: Acute (6) Diarrhea Code(s): R19.7 - DIARRHEA, UNSPECIFIED Status: Acute (7) Community acquired pneumonia Code(s): J18.9 - PNEUMONIA, UNSPECIFIED ORGANISM Status: Acute Qualifiers: Laterality: right Lung location: lower lobe of lung Qualified Code(s): J18.1 - Lobar pneumonia, unspecified organism (8) Folate deficiency Code(s): E53.8 - DEFICIENCY OF OTHER SPECIFIED B GROUP VITAMINS Status: Acute (9) Sepsis due to pneumonia Code(s): J18.9 - PNEUMONIA, UNSPECIFIED ORGANISM; A41.9 - SEPSIS, UNSPECIFIED ORGANISM Status: Acute (10) Leukocytosis Code(s): D72.829 - ELEVATED WHITE BLOOD CELL COUNT, UNSPECIFIED Status: Acute (11) Anemia of chronic disease Code(s): D63.8 - ANEMIA IN OTHER CHRONIC DISEASES CLASSIFIED ELSEWHERE Status : Acute - Plan DVT proph w/lovenox Leukocytosis downtrending. Continue augmentin for total of five days for sepsis from possible pneumonia on admission given fever and tachycardia on initial presentation. Blood cultures, UA, stool cultures are all normal. Hypercalcemia has resolved, continue po intake and prednisone until 07/21 . Replaced phosphorous with IV phos and neutraphos 250 mg TID. Started folic acid 1 mg daily for low folate levels. Regarding cancer, Dr. Conteh will discuss cancer treatment with oncologist coming on tomorrow. Patient is interested in treatment. Trend CBC
[2019-07-18] MEDS: Enoxaparin Sodium 40 MG/0.4 ML SYRINGE SC SCH (20:16)
[2019-07-19 06:38] LABS: Hemoglobin 8.9 g/dL (14.0-18.0); Mean Corpuscular HGB CONC 30.7 g/dL (32.0-36.0); Mean Corpuscular Hemoglobin 21.8 pg (27.0-31.0); Mean Corpuscular Volume 70.8 fL (78.0-98.0); Mean Platelet Volume 7.7 fL (7.4-10.4); Platelet Count 262 thou/uL (130-400); RBC Distribution Width 17.2 % (11.5-14.5); Red Blood Cell (RBC) Count 4.07 mill/uL (4.70-6.10); White Blood Cell (WBC) Count 15.3 thou/uL (4.8-10.8)
[2019-07-19 07:05] LABS: ALT (SGPT) 31 U/L (8-55); AST (SGOT) 21 U/L (5-34); Albumin 2.5 g/dL (3.4-4.8); Alkaline Phosphatase 288 U/L (40-110); Anion Gap 15 mmol/L (10-20); BUN (Urea Nitrogen) 9 mg/dL (8.4-25.7); Bilirubin, Total 0.5 mg/dL (0.2-1.2); Calc. Creatinine Clearance 175 mL/min (70-130); Calcium 7.2 mg/dL (7.8-10.44); Carbon Dioxide 26 mmol/L (23-31); Chloride 100 mmol/L (98-107); Estimated GFR-MDRD Greater than 90; Globulin 3.6 g/dL (2.4-3.5); Glucose 166 mg/dL (80-115); Magnesium 1.6 mg/dL (1.6-2.6); Phosphorus 2.5 mg/dL (2.3-4.7); Potassium 4.1 mmol/L (3.5-5.1); Protein, Total 6.1 g/dL (5.8-8.1); Sodium 137 mmol/L (136-145)
[2019-07-19 07:25] LABS: Band 2 % (5-11); Hypochromia MODERATE=16-30 cells (100X) (0-5/hpf); Lymphocytes 5 % (21-51); MDiff Complete? YES; Microcytosis MODERATE=15-30 cells (100X) (0-5/hpf); Monocytes 3 % (0-10); Neutrophil 90 % (42-75); Platelet Morphology Comment Appears Adequate; Polychromasia SLIGHT = 2-3 cells (100X) (0-2/hpf)
[2019-07-19] MEDS: Amoxicillin/Potassium Clav 875 MG TAB PO SCH ×2 (08:29→21:24)
[2019-07-19] MEDS: Folic Acid 1 MG TAB PO SCH (08:29)
[2019-07-19] MEDS: Metoprolol Tartrate 25 MG TAB PO SCH ×2 (08:29→21:24)
[2019-07-19] MEDS: K-Phos Neutral 250 MG TAB PO SCH ×2 (08:30→17:13)
[2019-07-19] MEDS: predniSONE 20 MG TAB PO SCH (08:30)
[2019-07-19] MEDS ORDERED: Furosemide 20 MG/2 ML VIAL SLOW IVP SCH (09:00)
[2019-07-19] MEDS: Acetaminophen 325 MG TAB PO PRN (10:13)
--- NOTE | 2019-07-19 12:04 | PRG ---
DATE OF SERVICE: 07/19/2019 SERVICE: Pulmonary Medicine. INTERVAL HISTORY: The patient is doing really well from respiratory standpoint. Breathing comfortably. There has been no interval change to his condition. Otherwise, his breathing is improved dramatically over the last 24 hours. He has yet to get out of bed. He is requesting better food for his diet. PHYSICAL EXAMINATION: VITAL SIGNS: Afebrile, pulse 90, blood pressure 110/68, respirations 16, and saturation 97% on 2 L nasal cannula. HEENT: Normocephalic and atraumatic. Sclerae white. Conjunctivae pink. Oral mucosa is moist without lesions. LUNGS: Decent air entry. There are dependent crackles, which are minimal. There is not a prolonged expiratory phase today. I do not appreciate any wheezing. HEART: Normal rate and regular. ABDOMEN: Soft, nontender, and nondistended. Bowel sounds are positive. MUSCULOSKELETAL: No cyanosis or clubbing. There is trace pitting in the bilateral lower extremities. NEUROLOGIC: Grossly nonfocal. LABORATORY DATA: WBC 15.3, hemoglobin 8.9, platelets 262,000. Neutrophil count is 90%, but band count has dropped to 2%. Basic metabolic profile and liver function studies are otherwise unremarkable. Phosphorus is improved to 2.5. Liver function studies are unremarkable except for improving alkaline phosphatase. ASSESSMENT: 1. Metabolic encephalopathy, resolved. 2. Hypercalcemia secondary to cancer. 3. Squamous cell carcinoma of the lung. 4. Acute on chronic hypoxic respiratory failure, at baseline. 5. Chronic obstructive pulmonary disease with minimal exacerbation. DISCUSSION AND PLAN: We will put him back on his Dulera. Otherwise, supportive cares will be continued. We will try to get him into a chair and work with Physical Therapy. I will change diet over to a regular diet. Pulmonary/Critical Care will continue to follow. Job ID: [id number]
--- NOTE | 2019-07-19 15:02 | PDOC.MOPN ---
Interval History: Patient alert, states he did see Dr. Huffman and had surgery for his lung cancer. States it was not removed and they "botched" his surgery. - Vital Signs Vital Signs: Vital Signs (12 hours) Temp Pulse Resp BP BP Pulse Ox 07/19/19 12:51 94 20 92 L 07/19/19 11:50 99.2 F 93 18 114/75 93 L 07/19/19 08:00 97 07/19/19 07:12 98.4 F 90 16 110/68 97 07/19/19 06:54 91 20 93 L 07/19/19 04:00 99.8 F H 91 18 120/73 94 L Weight Admit Weight 259 lb Weight 259 lb 4.218 oz Most Recent Monitor Data Heart Rate from ECG 99 NIBP 102/64 NIBP BP-Mean 76 Respiration from ECG 17 SpO2 95 - Physical Exam General: Alert, Oriented x3, No acute distress HEENT: Atraumatic, PERRLA, EOMI, Mucous membr. moist/pink Lungs: Clear to auscultation, Normal air movement Cardiovascular: Regular rate, Normal S1, Normal S2, No murmurs, Gallops, Rubs Abdomen: Normal bowel sounds, Soft, No tenderness, No hepatospenomegaly, No masses Extremities: No clubbing, No cyanosis, No edema, Normal pulses, No tenderness/ swelling Skin: No rashes, No breakdown, No significant lesion Neurological: Normal speech Psych/Mental Status: Mental status NL, Mood NL - Labs Result Diagrams: 07/19/19 05:42 07/19/19 05:42 Lab results: Laboratory Results - last 24 hr 07/19/19 05:42: WBC 15.3 H, RBC 4.07 L, Hgb 8.9 L, Hct 28.8 L, MCV 70.8 L, MCH 21.8 L, MCHC 30.7 L, RDW 17.2 H, Plt Count 262, MPV 7.7, Neutrophils % (Manual) 90 H, Band Neuts % (Manual) 2 L, Lymphocytes % (Manual) 5 L, Monocytes % (Manual ) 3, Hypochromia MODERATE=16-30 cells H, Plt Morphology Comment Appears Adequate , Polychromasia SLIGHT = 2-3 cells, Microcytosis MODERATE=15-30 cells H 07/19/19 05:42: Sodium 137, Potassium 4.1, Chloride 100, Carbon Dioxide 26, Anion Gap 15, BUN 9, Creatinine 0.70, Estimated GFR (MDRD) Greater than 90, Glucose 166 H, Calcium 7.2 L, Phosphorus 2.5, Magnesium 1.6, Total Bilirubin 0.5 , AST 21, ALT 31, Alkaline Phosphatase 288 H, Serum Total Protein 6.1, Albumin 2.5 L, Globulin 3.6 H, Albumin/Globulin Ratio 0.7 L Status: lab reviewed by me A/P - Problem (1) Acute respiratory failure with hypoxemia Current Visit: Yes Code(s): J96.01 - ACUTE RESPIRATORY FAILURE WITH HYPOXIA Status: Acute (2) Hypercalcemia of malignancy Current Visit: Yes Code(s): E83.52 - HYPERCALCEMIA Status: Acute (3) Lung cancer, lower lobe Current Visit: Yes Code(s): C34.30 - MALIGNANT NEOPLASM OF LOWER LOBE, UNSP BRONCHUS OR LUNG Status: Chronic Qualifiers: Laterality: unspecified laterality Qualified Code(s): C34.30 - Malignant neoplasm of lower lobe, unspecified bronchus or lung (4) Folate deficiency anemia Current Visit: Yes Code(s): D52.9 - FOLATE DEFICIENCY ANEMIA, UNSPECIFIED Status: Acute - Plan Plan: 1. Obtain med records from Dr. Huffman, our office will get them 2. Follow-up with Dr. Bo in clinic to discuss treatment 3. Continue folic acid and B12 repletion. 4. PT/OT
[2019-07-19] MEDS: Mometasone/Formoterol 120 PUFF INHALER INH SCH (18:15)
--- NOTE | 2019-07-19 18:45 | PDOC.HOSPP ---
- Subjective Encounter Date: 07/19/19 Encounter Time: 17:00 Subjective: The patient is doing okay, he got up and walked around some with physical therapy. Complains of some indigestion. He has had chronic diarrhea since the age of 14. He is chronically short of breath - Objective Vital Signs & Weight: Vital Signs (12 hours) Temp Pulse Pulse Resp BP BP Pulse Ox 07/19/19 18:15 86 16 94 L 07/19/19 18:13 86 16 94 L 07/19/19 15:21 97.8 F 88 18 111/71 92 L 07/19/19 14:14 98 07/19/19 12:51 94 20 92 L 07/19/19 12:00 30 H 94 L 07/19/19 11:50 99.2 F 93 18 114/75 93 L 07/19/19 08:00 97 07/19/19 07:12 98.4 F 90 16 110/68 97 07/19/19 06:54 91 20 93 L Pulse Ox 07/19/19 18:15 07/19/19 18:13 07/19/19 15:21 07/19/19 14:14 95 07/19/19 12:51 07/19/19 12:00 07/19/19 11:50 07/19/19 08:00 07/19/19 07:12 07/19/19 06:54 Weight Admit Weight 259 lb Weight 259 lb 4.218 oz Most Recent Monitor Data Heart Rate from ECG 99 NIBP 102/64 NIBP BP-Mean 76 Respiration from ECG 17 SpO2 95 I&O: 07/18/19 07/19/19 07/20/19 06:59 06:59 06:59 Intake Total 1060 2600 550 Output Total 2150 200 Balance 1060 450 350 Result Diagrams: 07/19/19 05:42 07/19/19 05:42 Hospitalist ROS - Review of Systems Constitutional: denies: chills, sweats - Medication Medications: Active Medications Generic Name Dose Route Start Last Admin Trade Name Freq PRN Reason Stop Dose Admin Acetaminophen 650 mg 07/13/19 04:10 07/19/19 10:13 Tylenol PO 650 mg Q4H PRN Administration Headache/Fever/Mild Pain (1-3) Albuterol/Ipratropium 3 ml 07/13/19 13:00 07/19/19 18:13 Duoneb NEB 3 ml [id number] CHIDI Administration Amoxicillin/Clavulanate Potassium 875 mg 07/16/19 21:00 07/19/19 08:29 Augmentin PO 07/21/19 21:01 875 mg Q12HR CHIDI Administration Enoxaparin Sodium 40 mg 07/13/19 21:00 07/18/19 20:16 Lovenox SC 40 mg 2100 CHIDI Administration Folic Acid 1 mg 07/19/19 09:00 07/19/19 08:29 Folvite PO 1 mg DAILY CHIDI Administration Loperamide HCl 2 mg 07/17/19 13:21 07/18/19 18:22 Imodium PO 2 mg Q4H PRN Administration Diarrhea/Loose Stools Metoprolol Tartrate 25 mg 07/15/19 21:00 07/19/19 08:29 Lopressor PO 25 mg BID CHIDI Administration Mometasone Furoate/Formoterol Fumar 2 puff 07/19/19 18:30 07/19/19 18:15 Dulera 100 Mcg/5 Mcg Inhaler INH 2 puff BID-RT CHIDI Administration Phosphorus 250 mg 07/18/19 17:00 07/19/19 17:13 Kphos Neutral PO 250 mg BID-WM CHIDI Administration Prednisone 40 mg 07/19/19 08:00 07/19/19 08:30 Prednisone PO 07/21/19 08:01 40 mg QAM-WM CHIDI Administration Sodium Chloride 10 ml 07/13/19 09:00 07/19/19 08:30 Flush - Normal Saline IVF 10 ml Q12HR CHIDI Administration - Exam General - other findings: Morbidly obese Eye: PERRL, anicteric sclera ENT: normocephalic atraumatic, no oropharyngeal lesions Neck: supple, symmetric, no JVD Heart: RRR, no murmur, no gallops Respiratory: CTAB, no wheezes, no rales Gastrointestinal: soft, normal bowel sounds, distended Extremities: no cyanosis, no clubbing, no edema Skin: normal turgor, no lesions, no rashes Neurological: cranial nerve grossly intact, normal sensation to touch, no focal deficits, no new deficit Musculoskeletal: normal tone, normal strength, no muscle wasting Hosp A/P (1) Acute respiratory failure with hypoxemia Code(s): J96.01 - ACUTE RESPIRATORY FAILURE WITH HYPOXIA Status: Acute (2) Acute metabolic encephalopathy Code(s): G93.41 - METABOLIC ENCEPHALOPATHY Status: Acute (3) Hypercalcemia of malignancy Code(s): E83.52 - HYPERCALCEMIA Status: Acute (4) Lung cancer, lower lobe Code(s): C34.30 - MALIGNANT NEOPLASM OF LOWER LOBE, UNSP BRONCHUS OR LUNG Status: Chronic Qualifiers: Laterality: unspecified laterality Qualified Code(s): C34.30 - Malignant neoplasm of lower lobe, unspecified bronchus or lung (5) Hypophosphatemia Code(s): E83.39 - OTHER DISORDERS OF PHOSPHORUS METABOLISM Status: Acute (6) Diarrhea Code(s): R19.7 - DIARRHEA, UNSPECIFIED Status: Acute (7) Community acquired pneumonia Code(s): J18.9 - PNEUMONIA, UNSPECIFIED ORGANISM Status: Acute Qualifiers: Laterality: right Lung location: lower lobe of lung Qualified Code(s): J18.1 - Lobar pneumonia, unspecified organism (8) Folate deficiency Code(s): E53.8 - DEFICIENCY OF OTHER SPECIFIED B GROUP VITAMINS Status: Acute (9) Sepsis due to pneumonia Code(s): J18.9 - PNEUMONIA, UNSPECIFIED ORGANISM; A41.9 - SEPSIS, UNSPECIFIED ORGANISM Status: Acute (10) Leukocytosis Code(s): D72.829 - ELEVATED WHITE BLOOD CELL COUNT, UNSPECIFIED Status: Acute (11) Anemia of chronic disease Code(s): D63.8 - ANEMIA IN OTHER CHRONIC DISEASES CLASSIFIED ELSEWHERE Status : Acute - Plan Leukocytosis increased to 15.3 again. Likely secondary to the lung cancer. . Continue augmentin two more days for sepsis from possible pneumonia on admission given fever and tachycardia on initial presentation. Blood cultures, UA, stool cultures are all normal. Hypercalcemia - has resolved, continue po intake and prednisone until 07/21 . Hypophosphatemia - resolved Folic acid deficiency - continue folic acid 1 mg daily for low folate levels. Lung cancer - oncology following and will get records from Dr. Charo Chao since he is interested in treatment Code status: full code DVT prophylaxis: lovenox
[2019-07-19] MEDS: Enoxaparin Sodium 40 MG/0.4 ML SYRINGE SC SCH (21:24)
[2019-07-19] MEDS: Loperamide HCl 2 MG CAP PO PRN (22:23)
[2019-07-20 06:07] LABS: Hemoglobin 8.7 g/dL (14.0-18.0); Mean Corpuscular HGB CONC 30.9 g/dL (32.0-36.0); Mean Corpuscular Hemoglobin 22.4 pg (27.0-31.0); Mean Corpuscular Volume 72.5 fL (78.0-98.0); Mean Platelet Volume 7.7 fL (7.4-10.4); Platelet Count 242 thou/uL (130-400); RBC Distribution Width 17.1 % (11.5-14.5); White Blood Cell (WBC) Count 11.3 thou/uL (4.8-10.8)
[2019-07-20 06:18] LABS: Hemoglobin 8.6 g/dL (14.0-18.0); Mean Corpuscular HGB CONC 30.4 g/dL (32.0-36.0); Mean Corpuscular Volume 72.2 fL (78.0-98.0); Mean Platelet Volume 7.9 fL (7.4-10.4); Platelet Count 251 thou/uL (130-400); RBC Distribution Width 17.2 % (11.5-14.5); Red Blood Cell (RBC) Count 3.91 mill/uL (4.70-6.10)
[2019-07-20 06:22] LABS: Band 3 % (5-11); Eosinophils 1 % (0-10); Lymphocytes 8 % (21-51); MDiff Complete? YES; Metamyelocyte 2 % (0-0); Monocytes 3 % (0-10); Neutrophil 83 % (42-75)
[2019-07-20 06:34] LABS: ALT (SGPT) 38 U/L (8-55); AST (SGOT) 45 U/L (5-34); Albumin 2.4 g/dL (3.4-4.8); Alkaline Phosphatase 337 U/L (40-110); Anion Gap 13 mmol/L (10-20); BUN (Urea Nitrogen) 10 mg/dL (8.4-25.7); Bilirubin, Total 0.5 mg/dL (0.2-1.2); Calc. Creatinine Clearance 198 mL/min (70-130); Calcium 6.9 mg/dL (7.8-10.44); Carbon Dioxide 27 mmol/L (23-31); Chloride 101 mmol/L (98-107); Estimated GFR-MDRD Greater than 90; Globulin 3.6 g/dL (2.4-3.5); Glucose 161 mg/dL (80-115); Potassium 3.7 mmol/L (3.5-5.1); Sodium 137 mmol/L (136-145)
[2019-07-20] MEDS: Mometasone/Formoterol 120 PUFF INHALER INH SCH ×2 (06:34→18:32)
[2019-07-20 06:37] LABS: Magnesium 1.6 mg/dL (1.6-2.6); Phosphorus 1.7 mg/dL (2.3-4.7)
[2019-07-20] MEDS: Amoxicillin/Potassium Clav 875 MG TAB PO SCH ×2 (07:49→19:30)
[2019-07-20] MEDS: K-Phos Neutral 250 MG TAB PO SCH ×2 (07:49→16:49)
[2019-07-20] MEDS: Metoprolol Tartrate 25 MG TAB PO SCH ×2 (07:50→19:30)
[2019-07-20] MEDS: Folic Acid 1 MG TAB PO SCH (07:50)
[2019-07-20] MEDS: predniSONE 20 MG TAB PO SCH (07:50)
[2019-07-20] MEDS ORDERED: Potassium Phosphate 30 MMOL in Sodium Chloride 0.9% 500 ML IVPB SCH (09:00)
[2019-07-20] MEDS ORDERED: Magnesium Sulfate 4 GM in Sodium Chloride 0.9% 250 ML 250 ML IVPB SCH (10:00)
--- NOTE | 2019-07-20 16:07 | PRG ---
DATE OF SERVICE: 07/20/2019 SERVICE: Pulmonary Medicine. INTERVAL HISTORY: The patient is doing really well from respiratory standpoint. Breathing comfortably. No complaints of chest discomfort, nausea, vomiting, fevers, or chills. He is sleeping comfortably this morning. He wakes up with gentle stimulation. He does not report any overnight events like cough. PHYSICAL EXAMINATION: VITAL SIGNS: Afebrile, pulse 85, blood pressure 107/69, respirations 16, and saturation 95% on 3 L nasal cannula. GENERAL: The patient is awake and alert, in no apparent distress. LUNGS: Wonderful air entry. Slightly prolonged expiratory phase. Wheezing and rhonchi are minimal. No crackles. HEART: Normal rate. Regular. ABDOMEN: Soft, nontender, and nondistended. Bowel sounds are positive. MUSCULOSKELETAL: No cyanosis or clubbing. No pitting in the bilateral lower extremities. NEUROLOGIC: Grossly nonfocal. LABORATORY DATA: WBC 11.3, hemoglobin 8.7 and stable, and platelets 242,000. Basic metabolic profile is unremarkable. Alkaline phosphatase is gently uptrending to 337 and AST 45. Phosphorus 1.7 and potassium 3.7. Magnesium 1.6. ASSESSMENT: 1. Acute on chronic hypoxic respiratory failure, resolved to baseline. 2. Chronic obstructive pulmonary disease with minimal exacerbation. 3. Squamous cell carcinoma of the lung. 4. Metabolic encephalopathy, resolved. 5. Hypercalcemia secondary to lung cancer. DISCUSSION AND PLAN: At this point, we can stop the steroids and nebulized medications. He has completed a course of antibiotics. He has no further requirements for inpatient Pulmonary or Critical Care opinion, and I will sign off from a respiratory standpoint. Please call with additional questions or concerns through time. Job ID: [id number]
--- NOTE | 2019-07-20 17:31 | PDOC.HOSPP ---
- Subjective Encounter Date: 07/20/19 Encounter Time: 17:30 Subjective: Patient reports not feeling that well today. States that he feels weak and tired. Had discussion about how patient was not amenable to treatment of lung cancer. Per oncology, may be hospice candidate. - Objective Vital Signs & Weight: Vital Signs (12 hours) Temp Pulse Resp BP Pulse Ox 07/20/19 13:16 85 16 95 07/20/19 08:00 98.2 F 85 22 H 107/69 95 07/20/19 06:32 89 16 96 Weight Admit Weight 259 lb Weight 259 lb 4.218 oz Most Recent Monitor Data Heart Rate from ECG 99 NIBP 102/64 NIBP BP-Mean 76 Respiration from ECG 17 SpO2 95 I&O: 07/19/19 07/20/19 07/21/19 06:59 06:59 06:59 Intake Total 2600 1040 480 Output Total 2150 200 Balance 450 840 480 Result Diagrams: 07/20/19 05:30 07/20/19 05:30 Hospitalist ROS - Medication Medications: Active Medications Generic Name Dose Route Start Last Admin Trade Name Freq PRN Reason Stop Dose Admin Acetaminophen 650 mg 07/13/19 04:10 07/19/19 10:13 Tylenol PO 650 mg Q4H PRN Administration Headache/Fever/Mild Pain (1-3) Amoxicillin/Clavulanate Potassium 875 mg 07/16/19 21:00 07/20/19 07:49 Augmentin PO 07/21/19 21:01 875 mg Q12HR CHIDI Administration Enoxaparin Sodium 40 mg 07/13/19 21:00 07/19/19 21:24 Lovenox SC 40 mg 2100 CHIDI Administration Folic Acid 1 mg 07/19/19 09:00 07/20/19 07:50 Folvite PO 1 mg DAILY CHIDI Administration Loperamide HCl 2 mg 07/17/19 13:21 07/19/19 22:23 Imodium PO 2 mg Q4H PRN Administration Diarrhea/Loose Stools Metoprolol Tartrate 25 mg 07/15/19 21:00 07/20/19 07:50 Lopressor PO 25 mg BID CHIDI Administration Mometasone Furoate/Formoterol Fumar 2 puff 07/19/19 18:30 07/20/19 06:34 Dulera 100 Mcg/5 Mcg Inhaler INH 2 puff BID-RT CHIDI Administration Phosphorus 250 mg 07/18/19 17:00 07/20/19 16:49 Kphos Neutral PO 250 mg BID-WM CHIDI Administration Prednisone 40 mg 07/19/19 08:00 07/20/19 07:50 Prednisone PO 07/21/19 08:01 40 mg QAM-WM CHIDI Administration Sodium Chloride 10 ml 07/13/19 09:00 07/20/19 07:50 Flush - Normal Saline IVF 10 ml Q12HR CHIDI Administration - Exam General Appearance: NAD, awake alert General - other findings: Obese Eye: PERRL, anicteric sclera ENT: normocephalic atraumatic, no oropharyngeal lesions Neck: supple, symmetric, no JVD Heart: RRR, no murmur, no gallops, no rubs Respiratory: CTAB, no wheezes, no rales, tachypneic Gastrointestinal: soft, non-tender, distended Extremities: no cyanosis, no clubbing, no edema Skin: normal turgor, no lesions Neurological: cranial nerve grossly intact, normal sensation to touch, no focal deficits, no new deficit Musculoskeletal: normal tone, normal strength, no muscle wasting Psychiatric: normal affect, normal behavior, A&O x 3 Hosp A/P (1) Acute respiratory failure with hypoxemia Code(s): J96.01 - ACUTE RESPIRATORY FAILURE WITH HYPOXIA Status: Acute (2) Acute metabolic encephalopathy Code(s): G93.41 - METABOLIC ENCEPHALOPATHY Status: Acute (3) Hypercalcemia of malignancy Code(s): E83.52 - HYPERCALCEMIA Status: Acute (4) Lung cancer, lower lobe Code(s): C34.30 - MALIGNANT NEOPLASM OF LOWER LOBE, UNSP BRONCHUS OR LUNG Status: Chronic Qualifiers: Laterality: unspecified laterality Qualified Code(s): C34.30 - Malignant neoplasm of lower lobe, unspecified bronchus or lung (5) Hypophosphatemia Code(s): E83.39 - OTHER DISORDERS OF PHOSPHORUS METABOLISM Status: Acute (6) Diarrhea Code(s): R19.7 - DIARRHEA, UNSPECIFIED Status: Acute (7) Community acquired pneumonia Code(s): J18.9 - PNEUMONIA, UNSPECIFIED ORGANISM Status: Acute Qualifiers: Laterality: right Lung location: lower lobe of lung Qualified Code(s): J18.1 - Lobar pneumonia, unspecified organism (8) Folate deficiency Code(s): E53.8 - DEFICIENCY OF OTHER SPECIFIED B GROUP VITAMINS Status: Acute (9) Sepsis due to pneumonia Code(s): J18.9 - PNEUMONIA, UNSPECIFIED ORGANISM; A41.9 - SEPSIS, UNSPECIFIED ORGANISM Status: Acute (10) Leukocytosis Code(s): D72.829 - ELEVATED WHITE BLOOD CELL COUNT, UNSPECIFIED Status: Acute (11) Anemia of chronic disease Code(s): D63.8 - ANEMIA IN OTHER CHRONIC DISEASES CLASSIFIED ELSEWHERE Status : Acute - Plan Consults: Palliative Care CT chest: right hilar lower lobe posterior mediastinal mass Sepsis from pneumonia - - had fever and tachycardia on admission, CT showing right hilar lower lobe mass. Likely cancer but was started on antibiotics with improvement in WBC. Continue augmentin to complete course. - blood cultures, UA, stool cultures normal Lung cancer - oncology following and stated not candidate for pneumonectomy due to respiratory status. Hospice/palliative care consult Hypercalcemia - has resolved, continue po intake and prednisone until 07/21 . Hypophosphatemia - resolved Folic acid deficiency - continue folic acid 1 mg daily for low folate levels. Chronic respiratory failure from Lung cancer - on 2L oxygen, at baseline Morbid obesity - nutrition consult Physical deconditioning - PT following, patient unable to walk much at baseline Dispo: likely to rehab vs SNF. Case management following and palliative consult Code status: full code DVT prophylaxis: lovenox
[2019-07-20] MEDS: Enoxaparin Sodium 40 MG/0.4 ML SYRINGE SC SCH (19:30)
[2019-07-21] MEDS: Loperamide HCl 2 MG CAP PO PRN ×2 (05:06→18:02)
[2019-07-21 06:10] LABS: ALT (SGPT) 40 U/L (8-55); AST (SGOT) 33 U/L (5-34); Albumin 2.5 g/dL (3.4-4.8); Alkaline Phosphatase 357 U/L (40-110); Anion Gap 12 mmol/L (10-20); BUN (Urea Nitrogen) 8 mg/dL (8.4-25.7); Bilirubin, Total 0.6 mg/dL (0.2-1.2); Calc. Creatinine Clearance 211 mL/min (70-130); Calcium 6.8 mg/dL (7.8-10.44); Carbon Dioxide 24 mmol/L (23-31); Chloride 104 mmol/L (98-107); Estimated GFR-MDRD Greater than 90; Globulin 3.5 g/dL (2.4-3.5); Glucose 116 mg/dL (80-115); Potassium 3.9 mmol/L (3.5-5.1); Sodium 136 mmol/L (136-145)
[2019-07-21 06:12] LABS: Band 16 % (5-11); Lymphocytes 11 % (21-51); MDiff Complete? YES; Mean Corpuscular HGB CONC 30.2 g/dL (32.0-36.0); Mean Platelet Volume 7.4 fL (7.4-10.4); Monocytes 8 % (0-10); Neutrophil 65 % (42-75); Platelet Count 257 thou/uL (130-400); RBC Distribution Width 17.4 % (11.5-14.5); Red Blood Cell (RBC) Count 4.08 mill/uL (4.70-6.10); White Blood Cell (WBC) Count 11.5 thou/uL (4.8-10.8)
[2019-07-21 06:18] LABS: Phosphorus 1.7 mg/dL (2.3-4.7)
[2019-07-21] MEDS ORDERED: Potassium Phosphate 15 MMOL in Sodium Chloride 0.9% 250 ML 250 ML IVPB SCH (07:00)
[2019-07-21] MEDS: Mometasone/Formoterol 120 PUFF INHALER INH SCH ×2 (07:01→18:34)
--- NOTE | 2019-07-21 07:21 | ULT ---
ULTRASOUND ABDOMEN LIMITED: (RIGHT UPPER QUADRANT) DATE: 07/21/2019 HISTORY: 64-year-old male with abnormal liver function tests. FINDINGS: Gallbladder:Surgically absent Common duct: Not visualized Liver:Echogenicity within normal limits. Pancreas:Completely obscured by shadowing from bowel gas. Right kidney:No hydronephrosis. IMPRESSION: 1) status post cholecystectomy. 2) pancreas and common bile duct not visualized. 3) no pathology visualized.
[2019-07-21] MEDS: predniSONE 20 MG TAB PO SCH (10:45)
[2019-07-21] MEDS: K-Phos Neutral 250 MG TAB PO SCH ×2 (10:45→16:34)
[2019-07-21] MEDS: Metoprolol Tartrate 25 MG TAB PO SCH ×2 (10:46→20:53)
[2019-07-21] MEDS: Amoxicillin/Potassium Clav 875 MG TAB PO SCH ×2 (10:46→20:52)
[2019-07-21] MEDS: Folic Acid 1 MG TAB PO SCH (10:46)
--- NOTE | 2019-07-21 17:31 | PDOC.HOSPP ---
- Subjective Encounter Date: 07/21/19 Encounter Time: 17:27 Subjective: The patient is still tachypneic. He understands that he is not getting cancer treatment and will go to rehab. He wants help trying to call his sister because his cell-phone doesn't work - Objective Vital Signs & Weight: Vital Signs (12 hours) Temp Pulse Resp BP Pulse Ox 07/21/19 12:10 88 20 95 07/21/19 08:00 95 07/21/19 07:57 98.3 F 95 22 H 105/65 93 L Weight Admit Weight 259 lb Weight 259 lb 4.218 oz Most Recent Monitor Data Heart Rate from ECG 99 NIBP 102/64 NIBP BP-Mean 76 Respiration from ECG 17 SpO2 95 I&O: 07/20/19 07/21/19 07/22/19 06:59 06:59 06:59 Intake Total 1040 1220 480 Output Total 200 600 Balance 840 620 480 Result Diagrams: 07/21/19 04:52 07/21/19 04:52 Hospitalist ROS - Review of Systems Constitutional: denies: fever, chills - Medication Medications: Active Medications Generic Name Dose Route Start Last Admin Trade Name Freq PRN Reason Stop Dose Admin Acetaminophen 650 mg 07/13/19 04:10 07/19/19 10:13 Tylenol PO 650 mg Q4H PRN Administration Headache/Fever/Mild Pain (1-3) Amoxicillin/Clavulanate Potassium 875 mg 07/16/19 21:00 07/21/19 10:46 Augmentin PO 07/21/19 21:01 875 mg Q12HR CHIDI Administration Enoxaparin Sodium 40 mg 07/13/19 21:00 07/20/19 19:30 Lovenox SC 40 mg 2100 CHIDI Administration Folic Acid 1 mg 07/19/19 09:00 07/21/19 10:46 Folvite PO 1 mg DAILY CHIDI Administration Loperamide HCl 2 mg 07/17/19 13:21 07/21/19 05:06 Imodium PO 2 mg Q4H PRN Administration Diarrhea/Loose Stools Metoprolol Tartrate 25 mg 07/15/19 21:00 07/21/19 10:46 Lopressor PO 25 mg BID CHIDI Administration Mometasone Furoate/Formoterol Fumar 2 puff 07/19/19 18:30 07/21/19 07:01 Dulera 100 Mcg/5 Mcg Inhaler INH 2 puff BID-RT CHIDI Administration Phosphorus 250 mg 07/18/19 17:00 07/21/19 16:34 Kphos Neutral PO 250 mg BID-WM CHIDI Administration Sodium Chloride 10 ml 07/13/19 09:00 07/21/19 10:46 Flush - Normal Saline IVF 10 ml Q12HR CHIDI Administration - Exam General Appearance: NAD, awake alert Eye: PERRL, anicteric sclera ENT: normocephalic atraumatic, no oropharyngeal lesions Neck: supple, symmetric, no JVD Heart: RRR, no murmur, no gallops, no rubs Respiratory: CTAB, no wheezes, no rales, tachypneic Respiratory - other findings: on 2L of oxygen tomorrow Gastrointestinal: soft, non-tender, non-distended Extremities: no cyanosis, no clubbing, no edema Skin: normal turgor, no lesions, no rashes Neurological: cranial nerve grossly intact, normal sensation to touch, no focal deficits, no new deficit Musculoskeletal: normal tone, normal strength, no muscle wasting Psychiatric: normal affect, normal behavior, A&O x 3, oriented to person Hosp A/P (1) Acute respiratory failure with hypoxemia Code(s): J96.01 - ACUTE RESPIRATORY FAILURE WITH HYPOXIA Status: Acute (2) Acute metabolic encephalopathy Code(s): G93.41 - METABOLIC ENCEPHALOPATHY Status: Acute (3) Hypercalcemia of malignancy Code(s): E83.52 - HYPERCALCEMIA Status: Acute (4) Lung cancer, lower lobe Code(s): C34.30 - MALIGNANT NEOPLASM OF LOWER LOBE, UNSP BRONCHUS OR LUNG Status: Chronic Qualifiers: Laterality: unspecified laterality Qualified Code(s): C34.30 - Malignant neoplasm of lower lobe, unspecified bronchus or lung (5) Hypophosphatemia Code(s): E83.39 - OTHER DISORDERS OF PHOSPHORUS METABOLISM Status: Acute (6) Diarrhea Code(s): R19.7 - DIARRHEA, UNSPECIFIED Status: Acute (7) Community acquired pneumonia Code(s): J18.9 - PNEUMONIA, UNSPECIFIED ORGANISM Status: Acute Qualifiers: Laterality: right Lung location: lower lobe of lung Qualified Code(s): J18.1 - Lobar pneumonia, unspecified organism (8) Folate deficiency Code(s): E53.8 - DEFICIENCY OF OTHER SPECIFIED B GROUP VITAMINS Status: Acute (9) Sepsis due to pneumonia Code(s): J18.9 - PNEUMONIA, UNSPECIFIED ORGANISM; A41.9 - SEPSIS, UNSPECIFIED ORGANISM Status: Acute (10) Leukocytosis Code(s): D72.829 - ELEVATED WHITE BLOOD CELL COUNT, UNSPECIFIED Status: Acute (11) Anemia of chronic disease Code(s): D63.8 - ANEMIA IN OTHER CHRONIC DISEASES CLASSIFIED ELSEWHERE Status : Acute - Plan CT chest: right hilar lower lobe posterior mediastinal mass Sepsis from pneumonia - - had fever and tachycardia on admission, CT showing right hilar lower lobe mass. Likely cancer but was started on antibiotics with improvement in WBC. Continue augmentin to complete course. - blood cultures, UA, stool cultures normal Lung cancer - oncology following and stated not candidate for pneumonectomy due to respiratory status. Hospice/palliative care consult in place, patient will be discharged to SNF tomorrow since not a candidate for treatment Hypercalcemia - has resolved, continue po intake and prednisone until 07/21 . Hypophosphatemia - phos 1.7, continue replacement Folic acid deficiency - continue folic acid 1 mg daily for low folate levels. Chronic respiratory failure from Lung cancer - on 2L oxygen, at baseline Morbid obesity - nutrition consult Physical deconditioning - PT following, patient unable to walk much at baseline Dispo: to SNF tomorrow Case management following and palliative consult Code status: full code DVT prophylaxis: lovenox
[2019-07-21] MEDS: Enoxaparin Sodium 40 MG/0.4 ML SYRINGE SC SCH (20:53)
[2019-07-22] MEDS: Mometasone/Formoterol 120 PUFF INHALER INH SCH (06:45)
[2019-07-22 07:25] LABS: Phosphorus 1.5 mg/dL (2.3-4.7)
[2019-07-22] MEDS: Folic Acid 1 MG TAB PO SCH (07:56)
[2019-07-22] MEDS: Metoprolol Tartrate 25 MG TAB PO SCH (07:56)
[2019-07-22] MEDS: K-Phos Neutral 250 MG TAB PO SCH ×2 (07:56→17:15)
[2019-07-22] MEDS: Loperamide HCl 2 MG CAP PO PRN ×2 (09:59→17:15)
[2019-07-22] MEDS ORDERED: Calcium Gluconate 100 MG/ML 10 ML IVPB SCH ×2 (12:00→12:02)
[2019-07-22] MEDS ORDERED: Magnesium Sulfate 2 GM in Sodium Chloride 0.9% 100 ML IVPB SCH (12:00)
[2019-07-22] MEDS ORDERED: Magnesium 2 GM/50 ML 2 GM in Premix Bag 1 BAG IVPB SCH (12:15)
--- NOTE | 2019-07-22 14:51 | RAD ---
EXAM: Single view of the chest HISTORY: Tachypnea COMPARISON: 07/14/2019 FINDINGS: Single view of the chest shows a normal sized cardiomediastinal silhouette. There is no devang dence of consolidation, mass, or pleural effusion. The bones are unremarkable. IMPRESSION: No evidence of acute cardiopulmonary disease
[2019-07-22 16:53] LABS: Calcium 7.3 mg/dL (7.8-10.44); Magnesium 1.9 mg/dL (1.6-2.6)
--- NOTE | 2019-07-22 18:09 | DIS ---
DATE OF ADMISSION: 07/13/2019 DATE OF DISCHARGE: 07/22/2019 ADMITTING DIAGNOSES: Severe hypercalcemia, urinary tract infection, lactic acidosis, respiratory alkalosis, hypokalemia, acute encephalopathy secondary to hypercalcemia, acute hypoxic respiratory failure, lung cancer, deep venous thrombosis. DISCHARGE DIAGNOSES: Primary discharge diagnoses: Acute hypoxic respiratory failure secondary to sepsis from pneumonia with lung cancer, acute metabolic encephalopathy secondary to hypercalcemia, hypophosphatemia, hypomagnesemia, hypocalcemia, hypercalcemia, folic acid deficiency, leukocytosis, chronic respiratory failure from lung cancer, chronic diarrhea, anemia of chronic disease, morbid obesity, physical deconditioning. CONSULTATIONS: Critical Care, Oncology, Palliative Care. PROCEDURES: None. HISTORY AND HOSPITAL COURSE: This is a 64-year-old male patient with past medical history of lung cancer, who presented to the hospital after being found with altered mental status, and O2 saturations in the 60s and 70s. On presentation to the ER , the patient was noted to have a calcium level of 15.6 and was intubated and initially admitted to the ICU. Acute hypoxic respiratory failure secondary to sepsis from pneumonia: The patient had a temperature of 99.7 on 07/15, and was tachycardic with a white count of 9.9, which increased to 17.6 on 07/14. CTA of the chest on 07/13 showed no evidence of a pulmonary embolism, but a right subcarinal/right infrahilar and right lower lobe mass. . The patient was treated with IV Cefepime from 07/13/2019 to 2018 for possible pneumonia, then the patient was then switched to p.o. Augmentin on 07/16/2019, and continued treatment until 07/21/2019. Antibiotics were discontinued on the . He received steroids from the to the . The patient was extubated and transferred to the floor on 07/17/2019. The patient is on 4 L of oxygen chronically at home; however, on the day of discharge, the patient was noted to have an O2 saturation of 88% on room air at rest. He was slightly tachypneic to respiratory rate of 22 though. Therefore, the patient was kept on 2 L of oxygen for comfort. However, the patient can remain off oxygen at rest if he tolerates it and place back on oxygen at the [facility] facility if he is tachypneic. Blood cultures during admission were negative, flu swab was negative, and UA was negative. Chronic respiratory failure from Right lower lobe lung cancer: With regard to his lung cancer, the patient was seen by Oncology and stated that he was not a candidate for a pneumonectomy. They recommended a Palliative Care consultation. The patient was felt to be appropriate for [facility] facility. The patient was seen by Physical Therapy during his stay and he was noted to refuse physical therapy a few times. The patient is at baseline 75% bedbound and uses a wheelchair to get around. Therefore, he will be discharged to an SNF. 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 Severe hypercalcemia: Calcium was 15.6 on admission. He was aggressively hydrated with IV fluids and was given calcitonin and zoledronic acid. On the day of discharge, his calcium was noted to be slightly low at 6.8 and considering that his albumin was low, he was given 1 g of calcium gluconate prior to discharge. His calcium level should be repeated tomorrow to make sure this is stable. The patient has no symptoms of hypocalcemia. His Lasix was discontinued since this could potentially aggravate this further. Lactic acidosis: The patient was noted to have lactic acid of 2.6 on 2018. This resolved and came down to 2.0 with IV fluids. Acute encephalopathy secondary to hypercalcemia: The patient was noted to be encephalopathic while he was hypercalcemic; however, his encephalopathy has largely resolved. He does seem to have some memory difficulties in terms of remembering his medical history; however, he is alert and oriented x3 on the day of discharge. Hypomagnesemia: The patient was noted to have magnesium level of 1.5 on 07/16, which improved to 2 on 07/17. Magnesium level on the day of discharge was 1.6. He will be discharged on magnesium supplements, given that the patient has chronic hypophosphatemia and chronic diarrhea. Hypophosphatemia: The patient was noted to have a persistently low phosphorus level of approximately 1.5. He had been repleted with IV phosphorus and oral phosphorus tablets on multiple occasions. He will be discharge with oral K-Phos supplements. This is most likely chronic, given that he has chronic diarrhea. The patient should have this periodically monitored as an outpatient. Hypokalemia: The patient was noted to have potassium level of 3.1 on 07/13/2019 , which decreased to 2.8 on 07/14/2019. This improved to 3.9 on the day of discharge. The patient's Lasix was discontinued to prevent further electrolyte abnormalities. Chronic diarrhea: The patient initially was in the ICU, was noted to have approximately 8 liquid stools per day. Stool cultures were sent and were negative for any bacteria or C diff or parasites. The patient states he has been having chronic diarrhea since age of 14. He has never seen a GI doctor, nor has he had a colonoscopy. This should be considered for further workup as an outpatient. He was discharged with Imodium p.r.n. Diastolic heart failure: The patient was noted to be on Lasix and Entresto as an outpatient. His Lasix and Entresto were discontinued, given the fact that his blood pressure is only 110/71 without any antihypertensive therapy. The patient should follow up with his PCP and assess if this needs to be restarted. He was advised that if he has worsening leg swelling or shortness of breath while lying down or any chest congestion, to consider resuming his Lasix. Chronic anemia: The patient was noted to have a hemoglobin of 8.7/28.3. This was noted to be stable during his hospital course. He can follow up with his PCP as outpatient for further workup. Leukocytosis: The patient was noted to have chronic leukocytosis. On 07/14, it was noted to be 17.6 and did come down with antibiotic therapy. However, it has remained stable at around 11 for the past 2 days. This is most likely from his lung cancer. This can be monitored further as an outpatient. Elevated ALP: patient was noted to have elevated ALP of 357. US abdomen showed no abnormalities. PERTINENT LABORATORY DATA: White blood cell count on 07/21/2019, was 11.5, phosphorus level 1.5, magnesium level 1.6, calcium level of 6.8, alkaline phosphatase level of 357, vitamin B12 of 271, folate less than 1.60, TSH 1.0155. PERTINENT IMAGIN. CT scan of the brain: No acute intracranial hemorrhage. 2. CTA of the thorax: No acute PE. Right hilar, lower lobe posterior mediastinal mass, suspicious for neoplasm. Numerous healed right rib fractures are present. 3. Abdominal ultrasound: Status post cholecystectomy, no pathology visualized, pancreatic and common bile duct not visualized. 4. Chest x-ray on 07/22/2019: No acute evidence of pulmonary disease. DISCHARGE CONDITION: The patient is relatively bedbound. He is on room air at rest and at times requires 2 L due to tachypnea. The patient refused oxygen assessment on ambulation, therefore he can be placed on 4 L on exertion. DIET: Heart healthy. DISCHARGE MEDICATIONS: 1. Folic acid 1 mg daily. 2. Neutra-Phos 250 mg p.o. t.i.d. 3. Aspirin 81 mg daily. 4. Celecoxib one tablet p.o. q.a.m. 5. Advair one puff inhaled q.a.m. 6. Loperamide 2 mg p.o. q.4 hours. 7. Magnesium oxide 400 mg p.o. daily. 8. Metoprolol 25 mg p.o. b.i.d. 9. Rosuvastatin 10 mg p.o. nightly. 10. Ubidecarenone 400 mg p.o. daily. 11. Varenicicline one tablet p.o. b.i.d. 12. Ventolin two puffs inhaled as directed. 13. Zolpidem 10 mg p.o. at bedtime. Job ID: [id number] [facility]
[2019-07-22 18:34] VITALS: BP 119/77; TEMP 97.9
== END 2019-07-22 18:58 | disposition home or self-care (01) | DRG 871 ==
LOC: ERS 02:12 → CCU 04:17 → T4-A 07-17 19:59
PROVIDERS: ADMIT Hospitalist; ATTEND Hospitalist
PROC: 0BH17EZ Insertion of Endotracheal Airway into Trachea, Via Natural or Artificial Opening (ICD-10-PCS; principal; 2019-07-13)
PROC: 5A1945Z Respiratory Ventilation, 24-96 Consecutive Hours (ICD-10-PCS; 2019-07-13)
DX: A41.9 Sepsis, unspecified organism (principal); J18.9 Pneumonia, unspecified organism; G93.41 Metabolic encephalopathy; J96.21 Acute and chronic respiratory failure with hypoxia; N39.0 Urinary tract infection, site not specified; E87.2 Acidosis; C34.90 Malignant neoplasm of unspecified part of unspecified bronchus or lung; I50.30 Unspecified diastolic (congestive) heart failure; J44.0 Chronic obstructive pulmonary disease with (acute) lower respiratory infection; J44.1 Chronic obstructive pulmonary disease with (acute) exacerbation; E83.52 Hypercalcemia; E87.6 Hypokalemia; E83.39 Other disorders of phosphorus metabolism; E83.42 Hypomagnesemia; E83.51 Hypocalcemia; G47.30 Sleep apnea, unspecified; E66.01 Morbid (severe) obesity due to excess calories; Z68.37 Body mass index [BMI] 37.0-37.9, adult; K21.9 Gastro-esophageal reflux disease without esophagitis; E78.5 Hyperlipidemia, unspecified; I25.2 Old myocardial infarction; Z90.49 Acquired absence of other specified parts of digestive tract; Z51.5 Encounter for palliative care; E86.0 Dehydration; D52.9 Folate deficiency anemia, unspecified
CPT/HCPCS: 36415; 51702; 70450; 71045; 71275; 76705; 80048; 80053; 81003; 81015; 82310; 82550; 82607; 82728; 82746; 82805; 83540; 83605; 83630; 83735; 83880; 84100; 84443; 84466; 84484; 85007; 85025; 85027; 87040; 87045; 87046; 87086; 87324; 87328; 87329; 87427; 87449; 87804; 93005; 93010; 94002; 94003; 94640; 94664; 96365; 96367; 96375; J0456; J0610; J0630; J0692; J1100; J1170; J1644; J1650; J1720; J1940; J2704; J2920; J3420; J3475; J3480; J3489; J3490; J7050; J7512; J7620; Q9966; S0028